=== PATIENT | male | born 1950 | race Caucasian/White ===

== ENCOUNTER 2016-10-19 08:25 | Inpatient (IN) | payer MEDICARE ==
[2016-10-19] VITALS (12 sets, daily range): BP systolic 105–139; BP diastolic 25–83; PULSE 60–119; RESP 14–22; O2SAT 93–100
[~2016-10-19] VITALS: Ht 172.7 cm; Wt 102.6 kg
[~2016-10-19 08:25] MED LIST: ACET-1890 PO; ALBU8.5H4 IH; ATRINH INH; AZTH50T PO; LOSA100T29 PO; LOVA40TA PO; MOME13HF IH; OMEP-113 PO; OXYC5CAP4 PO; SERT25TA2 PO; SULF1TAB35 PO; ZOLP5TAB6 PO
--- NOTE | 2016-10-19 08:35 | ED.REPORT ---
HPI-General Illness Date of Service October 19, 2016 ED Provider: Alberto Arguelles MD History of Present Illness: The patient received a phone call to come to the emergency department as his labs drawn yesterday in the clinic where he was seen for fatigue revealed a critically low hemoglobin of 5 Patient is a 66 year old male with a history of Crohn's disease, stomach ulcers and COPD who presents to the ED complaining of intermittent fatigue onset months ago. Associated symptoms include shortness of breath that is exacerbated by movement, ankle swelling and rectal discharge with blood. He denies chest pain, nausea, vomiting, diarrhea or abdominal pain. The patient reports that the fatigue has effected his ability to work on his wood work. He also states that the shortness of breath started over a year ago and has been worse the past few months. He reports that a year ago he was able to walk half a mile without getting shortness of breath but now even walking into a room causes him to get short of breath. Patient states that after infusions his fistula will stop draining and he will begin to have rectal discharge with blood. His last episode of bloody rectal discharge was yesterday and has been increasing over the past months. The patient was seen yesterday for a routine check up, where his doctor told him he looked pale. He received a phone call from his doctor this morning who told him he was very anemic and recommended he come to the ED. Patient is not currently taking ASA. Nursing Notes Stated Complaint: FATIGUE Chief Complaint: General Complaint Nursing Notes Reviewed: Yes Allergies: Coded Allergies: Penicillins (Verified Allergy, Unknown, UNKNOWN, 12/22/14) aspirin (Verified Allergy, Unknown, R/T CROHNS, 12/22/14) lisinopril (Verified Adverse Reaction, Severe, cough, 12/22/14) Scheduled Azathioprine (Azathioprine) 50 Mg Tablet 100 MG PO BID Gabapentin (Gabapentin) 300 Mg Capsule 300 MG PO BID Multivit-Min/FA/Lycopen/Lutein (Centrum Silver Men Tablet) 300 Mcg-600 Mcg-300 Mcg Tablet 1 EACH PO DAILY Tamsulosin (Flomax) 0.4 Mg Capsule 0.4 MG PO DAILY Scheduled PRN Omeprazole (Omeprazole) 20 Mg Capsule.dr 20 MG PO DAILY PRN PRN For Dyspepsia or Heartburn Oxycodone HCl/Acetaminophen 5-325 (Endocet 5-325) 1 Each Tablet 1 TABLET PO BID PRN PRN pa Zolpidem (Zolpidem) 5 Mg Tablet 5 MG PO HS PRN PRN For Insomnia General Time Seen by MD: 08:33 Chief Complaint Not feeling well, Other "I feel tired" is his main complaint, he is here because he was sent today having received a phone call that his outpatient labs drawn yesterday were abnormal Past Medical History Past Medical History Crohn's disease s/p subtotal colectomy 2009. 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 HTN Kidney stones Past Surgical History S/p Subtotal colectomy 2009. Percutaneous drainage of abdomen/pelvic abscess by Interventional Radiologist in September 2013. S/P tonsillectomy. S/p Left hemiarthroplasty. Smoking History Current Every Day Smoker, Light Tobacco Smoker Social History Alcohol Use: Denies alcohol use Ambulatory Status Independent Physical Exam Vital Signs Vital Signs Date Time Temp Pulse Resp B/P Pulse Ox O2 Delivery O2 Flow Rate FiO2 10/19/16 08:30 35.7 85 14 139/67 99 Room Air Initial VS: Reviewed General/Constitutional: Awake, Alert, No acute distress Appearance / Presentation: Positive: Ill appearing/not toxic, Pale Head / Eyes: Atraumatic, Normocephalic, PERRL, EOMI Neck: Atraumatic, Supple, Full range of motion Respiratory / Chest: Atraumatic, Breath sounds NL, Breath sounds = bilat, No respiratory distress Cardiovascular: Heart rate NL, Regular rhythm, Heart sounds NL Abdomen: Atraumatic, Soft, Non-tender fistula pouch on RLQ Lower Extremity / Pelvis / MS: Atraumatic, Full range of motion +1-2 edema both extremities Skin: Atraumatic, Color NL, No rash, Warm, Dry Neurologic: Oriented X3, Speech NL, No motor deficits, No sensory deficits Psychiatric: Affect NL, Mood NL Interpretation & Diagnostics Lab Results Interpretation Result Diagram: 10/19/16 1015 10/19/16 0845 Test 10/19/16 08:45 10/19/16 10:15 White Blood Count 3.1th/mm3 (3.8-10.1) Red Blood Count 1.10mil/mm3 (4.40-5.80) Mean Corpuscular Volume 124.5fL (81-100) Mean Corpuscular Hemoglobin 43.6pg (27.0-35.0) Mean Corpuscular Hemoglobin Concent 35.0% (32.0-37.0) Red Cell Distribution Width 17.7% (12.3-15.4) Platelet Count 128bil/L (150-400) Neutrophils (%) (Auto) 34.6% (40-74) Lymphocytes (%) (Auto) 51.0% (14-46) Monocytes (%) (Auto) 10.6% (4-12) Eosinophils (%) (Auto) 2.9% (0-5) Basophils (%) (Auto) 0.6% (0-3) Reticulocyte Count,Calculated 1.1% (0.6-2.6) Prothrombin Time 10.2sec (8.1-12.5) Prothromb Time International Ratio 0.95ratio Sodium Level 138mEq/L (134-144) Potassium Level 3.2mEq/L (3.5-5.2) Chloride Level 97mEq/L (97-108) Carbon Dioxide Level 24mmol/L (18-29) Blood Urea Nitrogen 17mg/dL (8-27) Creatinine 0.99mg/dL (0.76-1.27) Estimat Glomerular Filtration Rate 80mL/min (>59) Glucose Level 117mg/dL (60-99) Calcium Level 9.0mg/dL (8.5-10.1) Total Bilirubin 0.6mg/dL (0.0-1.2) Aspartate Amino Transf (AST/SGOT) 17U/L (0-50) Alanine Aminotransferase (ALT/SGPT) 7U/L (0-44) Alkaline Phosphatase 92U/L (25-160) Troponin T 0.015ug/L (0.0-0.011) Total Protein 7.3g/dL (6.4-8.4) Albumin 3.3g/dL (3.4-5.0) Hemoglobin 4.1g/dL (13.8-17.2) Hematocrit 11.9% (41.0-50.0) Lab Results Interpretation: CBC mild nonspecific leukopenia, severe anemia, mostly normal platelets Repeat hematocrit small drop still severely low CMP mild hypokalemia Normal reticulocyte count ECG Interpretation ECG Interpretation: no findings of ischemia better quality than previous EKG Time: 08:53 Interpreted by: ED physician Normal ECG Interpretation: Normal rate (67), Normal sinus rhythm X-Ray Chest Interpretation Chest Xray Interpretation: IMPRESSION: No acute cardiopulmonary findings. Dictated by: Kaitlin Thomas M.D. on 10/19/2016 at 9:03 Approved by: Kaitlin Thomas M.D. on 10/19/2016 at 9:04 View: Portable, 1 view Interpretation / Wet Read by: Interpret - Radiologist Re-Eval/Medical Decision Med Decision/Clinical Course This is a 66-year-old male was referred in following results of abnormal laboratories were drawn during a routine primary care physician follow-up yesterday. The patient is a long history of Crohn's, and he has noted some increasing bloody rectal discharge which she has had long-term, as he has chronic Crohn's, a fistula in his artery had a colectomy and has an ileostomy- again he describes bloody rectal discharge, not blood in the ileostomy site. I results of the slow progression of increasing weakness and fatigue, limiting his ability to exert himself and even to do his fun workup woodworking. He saw some shortness of breath particularly with exertion, and occasional episodes of trace chest discomfort. Yesterday in the clinic he was noted to be severely pale, labs are drawn and returned today demonstrating severe, new anemia. He has required blood transfusions in the past-but has been 5-6 years since his last transfusion. He reports he feels okay, no shock to get the phone call to call telling him to come directly to the ED. He is hemodynamically normal. He has marked pallor, but does not appear acutely toxic or ill. His abdomen is soft and nontender, he has trace edema in the legs. He does not appear dyspneic. His lab work here confirms a severe anemia, and a transfusion is being started. His presentation remains highly suspicious for GI loss and situation, but the overall clinical presentation is slightly atypical-and is certainly more to be a chronic bleed rather than an acute change. No acute ischemic changes or overt heart failure evident radiographically or on EKG, but a troponin is marginally elevated-and I suspect demand ischemia as the likely etiology. This initial plan is a transfusion resuscitation, I discussed the case with the painter ski edge who was requested but had red cell scan be ordered the patient go ahead and be started on a Protonix drip as well. Suspicious been discussed with the hospitalist and the patient's being admitted while his transfusion is ongoing. Source of Hx: Old records Consultation #1: Consulted With: On-call physician (GI specialist) Call Returned at: 09:39 Permit Review Assistant: Will see patient, Agrees with eval, Agrees with plan Note: Consult with Dr. Nuñez, GI specialist and discussed patient's case. Consultation #2: Referral / Consult Name: Lonnie Dumont MD Consulted With: Hospitalist Call Returned at: 10:25 Permit Review Assistant: Agrees with eval, Agrees with plan, Accepts admit Counseled Regarding: Diagnosis, Lab results, Need for admission Discharge & Departure Primary Impression: Symptomatic anemia Additional Impressions: GI bleed GI bleed type/associated pathology: unspecified gastrointestinal hemorrhage type Qualified Code: K92.2 - Gastrointestinal hemorrhage, unspecified Elevated troponin Disposition: ADMITTED TO HOSPITAL Discharge Condition All VS Reviewed: Yes Condition: Stable Referrals: Dino David DO (PCP) Crit Care Except Billable Proc Time Spent: 30-74 minutes Services Performed: Patient management by me, Time spent at bedside, Reviewing test results, Reviewing imaging, Discussing patient care, Documentation in record, Other Scribe Attestation Portions of this note were transcribed by Ct Lewis. I, Dr. Arguelles personally performed the history, physical exam and medical decision-making; I reviewed and confirmed the accuracy of the information in the transcribed note. Signed by: Sonia Baumann, 10/19/16 and 0935. copies to: Dino David Matthew F MD October 19, 2016 08:35 Ramila Lewis October 19, 2016 08:59
--- NOTE | 2016-10-19 09:05 | DRSVH ---
PROCEDURE: X-RAY CHEST ONE VIEW, PORTABLE ([id number]) INDICATIONS: CP TECHNIQUE: One view of the chest was acquired. COMPARISON: None. FINDINGS: Surgical changes and devices: Left humeral fixation hardware is partially visualized. Lungs and pleura: No pleural effusions or pneumothorax. Lungs are clear. Mediastinum: Mediastinal contours appear normal. Heart size is normal. Bones and chest wall: No suspicious bony lesions. Overlying soft tissues appear unremarkable. IMPRESSION: No acute cardiopulmonary findings. Dictated by: Kaitlin Thomas M.D. on 10/19/2016 at 9:03 Approved by: Kaitlin Thomas M.D. on 10/19/2016 at 9:04
[2016-10-19 09:09] LABS: BASOPHILS % (AUTO) 0.6 % (0-3); EOSINOPHILS % (AUTO) 2.9 % (0-5); MONOCYTES % (AUTO) 10.6 % (4-12); Mean Corpuscular Hemoglobin 43.6 pg (27.0-35.0); Mean Corpuscular Volume 124.5 fL (81-100); NEUTROPHILS % (AUTO) 34.6 % (40-74); Platelet Count 128 bil/L (150-400)
[2016-10-19 09:14] LABS: INR 0.95 ratio
[2016-10-19] MEDS ORDERED: 0.9% Sodium Chloride 250 ML IV ONE (09:30)
[2016-10-19 09:43] LABS: TROPONIN T 0.015 ug/L (0.0-0.011)
[2016-10-19] MEDS ORDERED: AZTH50T PO (09:58)
[2016-10-19] MEDS ORDERED: TAMS0.4C98 PO (09:58)
[2016-10-19] MEDS ORDERED: OXYC-407 PO (09:58)
[2016-10-19] MEDS ORDERED: OMEP20CA11 PO (09:59)
[2016-10-19] MEDS ORDERED: MULT-1104 PO (09:59)
[2016-10-19] MEDS ORDERED: GABA-502 PO (10:01)
[2016-10-19] MEDS ORDERED: Pantoprazole 4 mg/mL 10 mL Inj IVPUSH ONE (11:15)
[2016-10-19] MEDS ORDERED: Pantoprazole Inj 80 MG, Pharmacy To Mix 1 EA in 0.9% Sodium Chloride 80 ML IV ONE ×2 (11:15)
[2016-10-19] MEDS ORDERED: Polyethylene Glycol (PEG) 17 Gm Powder PO PRN (11:25)
[2016-10-19] MEDS ORDERED: Alum-Mag Hydrox-Simeth 30 mL Suspension PO PRN (11:25)
[2016-10-19] MEDS ORDERED: Ondansetron 2 mg/mL 2 mL Inj IVPUSH PRN (11:25)
[2016-10-19 12:43] LABS: Unsaturated Iron Binding 54.9 ug/dL
[2016-10-19] MEDS ORDERED: Albuterol 2.5 mg/3 mL Inhalation Solution NEB PRN (13:40)
--- NOTE | 2016-10-19 13:41 | CONS ---
[address] [address] CONSULTATION REPORT PATIENT: RHONA CORRALES : 1950 MR#: [id number] ADMIT: 10/19/2016 JOB ID: [id number] DATE OF SERVICE: 10/19/2016 REASON FOR CONSULTATION: It was a pleasure seeing this patient at [facility] for evaluation of anemia and Crohn disease. HISTORY OF PRESENT ILLNESS: This is a 66-year-old gentleman who has been following Dr. Bee for his Crohn disease. Last time the patient was seen by Dr. Bee was in May 2016. At that time, he was on Remicade 100 mg every six weeks and he was also on azathioprine 225 mg daily. He has a history of Crohn disease for the past 21 years. He also had complicated Crohn disease with fistula with subacute colectomy with ileostomy. He has this baseline history of occasional tinge of blood in the stool and when he has Remicade, he sometimes has a little bit of ounce of mucous material with some pink coloration coming out of his rectal stump. Back in May when Dr. Bee saw the patient, he continued the Remicade 100 mg every six weeks and increase the Imuran to 225 mg. He was asked to come back in six weeks; however at that time, he was concerned about slowly decreasing of his hemoglobin and he said he may consider repeating the endoscopy in the future date. Prior to that visit, he was started on Imuran sometime around December of last year. The exact date is unclear and patient is not sure. When Imuran was started in December, his hemoglobin was 14-16, white count from 9000-10,000, platelets were in the high 200,000s. Then in January of last year, his hemoglobin was 13, platelets are 260,00. Then in February of last year, we noticed that he his hemoglobin dropped to 12.3, platelets are 289,000, and white count also slowly decreased to 7800. Then in April 2016, his white count was 3600, hemoglobin was 9.7, platelets were slowly decreasing to 207,000. Then he was feeling tired and weak, lack of energy, sometimes dizzy, so he saw his primary care doctor yesterday and they obtained blood tests. Unfortunately we do not have a blood test from July in our records which he should have gotten because that would have been three months after the initial blood test. But his white count was 3400, hemoglobin 5.2, platelets were 132,000, MCV was 123. In the past, his MCV varies from 92-95. MCH is 42.6, RDW is 20. His liver function tests however remained stable but on the other hand, his albumin also started going down from 4 to 3.5 to 3.8, 3.5 and 3.4. Transaminases are all intact. Currently other than dizziness and lightheadedness, he denies any other Crohn's symptom exacerbation such as nausea, vomiting, fever, chills, weight loss, decrease in p.o. intake, abdominal pain, diarrhea, significant blood in the stools. Occasionally he sees a tinge of blood in his ostomy and again a couple of weeks before he gets the Remicade, he has what looks like mucus material coming out with little pinkish coloration. This has been the baseline for a number of years. His appetite is intact. His ostomy output has not changed during this time, and his ostomy output is consistent with brown to yellow stools formed soft and brown. PAST MEDICAL HISTORY: Crohn's, status post total colectomy back in 2009 complicated by pelvic abscess in September 2013 with fistula, high blood pressure, kidney stones, tonsillectomy, left hemiarthroplasty. He does use tobacco. Denies any alcohol use. MEDICATIONS: Includes in hsopital nicotine, MiraLAX, Zofran, pantoprazole. PHYSICAL EXAMINATION: His vitals include temp of 36.5, pulse 64, respiration 18, blood pressure 138/70. Head and neck: No icterus. No lymphadenopathy. Lungs: Clear. Cardiovascular: Regular rate and rhythm. Normal S1, S2. Abdomen is soft, nontender, and nondistended with normoactive bowel sounds. Ostomy output seems to have no blood and soft fecal material. Mild swelling in the lower extremities noted but no jaundice on the skin. LABORATORY DATA: His blood count this morning was white count of 3100, hemoglobin of 4.8, MCV 124, MCH 43.6, RDW 17.7, platelets 128,000, 34% neutrophils, lymphocytes of 51,000. INR is 0.09. Chemistry showed potassium of 3.2, BUN 17, creatinine 0.99. Troponin is mildly elevated at 0.015, albumin 3.3. IMPRESSION: This is a gentleman who has slowly declining hemoglobin level as well as the white count as well as platelets since starting of the Imuran. His hemoglobin went from 13, 12.3, and 9.7 in April; nothing in July, and 4.8. His platelets also slowly decreased and his MCV also increased from 92 to 95 to 98 to 128. At the same time in May when he was seen by Dr. Bee, Imuran was slightly increased in dosage. He was also on high dose Remicade. Currently there is minimal evidence of GI bleeding. He does see a little bit of blood in the stool and pinkish discoloration on the ostomy output at the end of 6 weeks prior to remicade infusion; however these has been going on for a while. This appears to be slow drop in hemoglobin level, white count and platelet level as well, and retic count is only 1.1. This appears to be a bone-marrow suppression maybe from side effect from the Imuran. he was on remicade prior to December of last year and there was no evidence of pancytopenia. Recommend the followin. Hematology consult. 2. Would hold off on Imuran for now. He is not due to remicade for now. 3. Please obtain TPMT level. 4. Please also obtain 6-mercaptopurine level (6-MMP) and 6-thioguanine level (6-TG). 5. I would just keep him resuscitated at this point. With all the change and RBC profile including the elevated MCV, RDW, MCH, this is pointing to the fact that this could be Imuran induced. Will follow. In the meantime, I would just put the patient on Protonix 40 mg IV bolus once a day and after Hematology evaluation and after metabolite level, will consider whether or not future benefit from endoscopy. MTDD
--- NOTE | 2016-10-19 13:44 | PCM.HPMED ---
Subjective Date of Service October 19, 2016 Primary Provider: Admitting Physician: Lonnie Dumont MD Primary Care Physician: Dino David DO Attending Physician: Lonnie Dumont MD Chief Complaint: Anemia History of Present Illness: Mark Gallagher is a 66-year-old man with past medical history significant for Crohn's disease status post colectomy on chronic Remicade, being followed by Dr. Bee, who presents to the [facility] emergency department today by referral of his primary care provider due to abnormally low hemoglobin and hematocrit. The patient was being seen for a regular scheduled appointment with his PCP patient appeared quite pale subsequent ordered a CBC which showed that the patient's hemoglobin was around 5. The patient himself states that he has been feeling fine; he is dizzy and weak at baseline and has not noticed any difference. Patient does admit to several episodes of syncope over the last several months however, the patient attributes this to a poor diet and states that once increased his protein he felt much better. The patient chronically has some bloody discharge from his rectal stump but he has not noticed any increase in amount. Patient states that it is 1-2 ounces of bloody discharge which he says after his Remicade infusions. The patient states that his last blood transfusion was about 6 years ago which was done on outpatient basis. Patient also notes 1-2 months of new onset of lower extremity edema. He is also complaining of exertional chest pain that is relieved by rest and last about 3-5 minutes has been going on for several months. Of note, the patient's daughter is also transfusion dependent apparently however, patient is uncertain of any further details. He will contact his daughter for further information. In the ED his vital signs were stable. Dr. Morel GI was consulted who agreed to see the patient At his request the patient was started on a Protonix drip. The patient was typed and crossed for 4 units of PRBCs and was transfused with his first bag. Review of Systems: A comprehensive review of systems was conducted with the patient and found to be negative except as above in the History of Present Illness. Allergies Coded Allergies: Penicillins (Verified Allergy, Unknown, UNKNOWN, 12/22/14) aspirin (Verified Allergy, Unknown, R/T CROHNS, 12/22/14) lisinopril (Verified Adverse Reaction, Severe, cough, 12/22/14) Home Medications Scheduled Azathioprine (Azathioprine) 50 Mg Tablet 100 MG PO BID Gabapentin (Gabapentin) 300 Mg Capsule 300 MG PO BID Multivit-Min/FA/Lycopen/Lutein (Centrum Silver Men Tablet) 300 Mcg-600 Mcg-300 Mcg Tablet 1 EACH PO DAILY Tamsulosin (Flomax) 0.4 Mg Capsule 0.4 MG PO DAILY Scheduled PRN Omeprazole (Omeprazole) 20 Mg Capsule.dr 20 MG PO DAILY PRN PRN For Dyspepsia or Heartburn Oxycodone HCl/Acetaminophen 5-325 (Endocet 5-325) 1 Each Tablet 1 TABLET PO BID PRN PRN pa Zolpidem (Zolpidem) 5 Mg Tablet 5 MG PO HS PRN PRN For Insomnia PMH Crohn's disease s/p subtotal colectomy 2009. 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 HTN Kidney stones Surgical History S/p subtotal colectomy 2009. Percutaneous drainage of abdomen/pelvic abscess by Interventional Radiologist in September 2013. S/P tonsillectomy. S/p Left hemiarthroplasty Appendectomy Family History Daughter is also anemic. 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 Denied needs for nicotine patch.) Smoking Status: Current Every Day Smoker, Light Tobacco Smoker Exam Vital Signs Vital Sign - Last Date Time Temp Pulse Resp B/P Pulse Ox O2 Delivery O2 Flow Rate FiO2 10/19/16 11:48 66 10/19/16 11:34 Supplement Oxygen 10/19/16 11:27 36.5 18 138/70 96 10/19/16 10:39 2 Exam General: Pale, No acute distress, well-developed, well-nourished, appropriately interactive HEENT: Normocephalic, atraumatic. External ears without defect. Pupils equal, round, and reactive to light and accommodation. Anicteric sclerae, moist conjunctivae, and no lid lag. Oropharynx free of erythema and cobble stoning with moist mucosa. Pale conjunctiva. Neck: Supple with full range of motion. No jugular venous distension. No bruits. No lymphadenopathy or thyromegaly. Cardiovascular: Regular rate and rhythm with no murmurs, rubs, or gallops appreciated Pulmonary: Crackles at the bilateral apexes otherwise clear to auscultation. Normal respiratory effort with no use of accessory muscles. Abdomen: Bowel tones present. Soft, nontender, nondistended. No hepatosplenomegaly or masses appreciated. Colostomy present with a nearly empty. Subumbilical fistula present with dressing over it. Extremities: No clubbing, cyanosis, or lymphadenopathy appreciated. Bilateral pitting lower extremity edema up to mid lower leg. Skin: Normal temperature, turgor, and texture; no rash, ulcers, or subcutaneous nodules appreciated. Neurological: Cranial nerves grossly intact. Normal muscle strength, tone, and bulk. Reflexes, coordination, and sensory function within normal limits. No known gait impairment. Psychiatric: Normal mood and affect. Alert and oriented to person, place, and time. Lab and Diagnostics Result Diagram: 10/19/16 1015 10/19/16 0845 X-Rays, CTs and MRIs X-RAY CHEST ONE VIEW, PORTABLE IMPRESSION: No acute cardiopulmonary findings. Dictated by: Kaitlin Thomas M.D. on 10/19/2016 at 9:03 Assessment & Plan Mark Gallagher is a 66-year-old man with past medical history significant for Crohn's disease status post colectomy on chronic Remicade, being followed by Dr. Bee, who presents to the [facility] emergency department today by referral of his primary care provider due to abnormally low hemoglobin and hematocrit. Severe symptomatic macrocytic anemia, likely acute on chronic, present on admission -Based on the patient's compensation he has been anemic for an extended period of time -His MCV is significantly elevated at 124, RDW is also elevated at 17 which may be suggestive of concomitant iron deficiency and B12/folate deficiency -Differential diagnosis includes GI bleed, hemolytic anemia, bone marrow suppression, B12 deficiency secondary to bacterial overgrowth secondary to fistula, iron deficiency secondary to slow GI bleed, or suppression secondary to Remicade, Imuran bone marrow toxicity -B12, folate, iron panel, cold agglutinin, peripheral smear have been ordered and pending. -Unfortunately the patient regarding transfusion PRBCs and many of our studies cannot be completed, doing them on post transfusion blood would give false results -Patient typed and crossed for 4 units PRBCs, transfusing 3 units -H&H every 6 hours -GI consulted, agrees to see the patient. Will likely do EGD after patient is transfused. Per recommendation she was started on PPI ip, will continue. -Per GI recommendation radioactive labeled RBCs study has been ordered -GI recommend hematology consult however, will await studies to gather more information before contacting hematology. 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 Patient states that this is normal for him and requires packing, sometimes multiple times per day. Therefore, we will continue to pack wound and do dressing changes as needed. -Hold Imuran Chronic smoker -Patient is ever been diagnosed with COPD however, he does make to a chronic cough that is mildly productive with clear sputum -He has also had a pulmonary function study in 2014 which revealed air trapping however no air-fluid obstruction and curiously significant bronchodilator response which may be more consistent with asthma thus, will offer patient PRN albuterol. -Nicotine patch offered BPH -Continue Flomax Insomnia - Continue PRN zolpidem. CODE STATUS: Full code Patient is admitted under inpatient status with expected length of stay greater than 2 midnights due to severity of presenting symptoms, risk of adverse event, and complexity of treatment plan. Pain Evaluation: Adequate Pain Control GI Prophylaxis: Proton Pump Inhibitor VTE Mechanical Devices: Intermittant Pneumatic CD Resuscitation Status: CPR: Attempt Resuscitation Attending Statement Patient seen and examined with the resident. Chart has been reviewed and agree with the above history and physical note. Rosalina Acuna DO October 19, 2016 11:57 Lonnie Dumont MD October 19, 2016 19:05
[2016-10-19 15:33] LABS: APPEARANCE,URINE CLEAR (CLEAR,HAZY); COLOR,URINE YELLOW (YELLOW); OCCULT BLOOD,URINE NEGATIVE (NEGATIVE); PH,URINE 5.5 (5.0-8.0); UROBILINOGEN,URINE NORMAL (NORMAL)
[2016-10-19] MEDS ORDERED: Potassium Chloride 20 mEq SR Tablet PO ONE (18:10)
[2016-10-19] MEDS: oxyCODONE-Acetamin 5-325 mg Tablet PO PRN (21:59)
[2016-10-20] VITALS (16 sets, daily range): BP systolic 99–155; BP diastolic 45–72; PULSE 60–80; RESP 14–20; O2SAT 94–99
[2016-10-20 02:56] LABS: BASOPHILS % (AUTO) 0.4 % (0-3); EOSINOPHILS % (AUTO) 3.1 % (0-5); MONOCYTES % (AUTO) 8.6 % (4-12); Mean Corpuscular Hemoglobin 36.2 pg (27.0-35.0); Mean Corpuscular Volume 105.9 fL (81-100); NEUTROPHILS % (AUTO) 38.1 % (40-74); Platelet Count 114 bil/L (150-400)
[2016-10-20] MEDS: Pantoprazole 4 mg/mL 10 mL Inj IVPUSH SCH ×2 (08:20→17:31)
[2016-10-20] MEDS: 0.9% Sodium Chloride 250 ML IV SCH (08:22)
--- NOTE | 2016-10-20 11:20 | PCM.PNMED ---
Subjective Date of Service October 20, 2016 Subjective Patient states is doing well overnight. He is asymptomatic even though his hemoglobin continues to drop. He denies associated review of symptoms. His history very well compensated for his lack hemoglobin. Exam Vital Signs Vital Sign - Last Date Time Temp Pulse Resp B/P Pulse Ox O2 Delivery O2 Flow Rate FiO2 10/20/16 10:31 37.0 62 14 121/65 10/20/16 03:13 96 Room Air 10/19/16 22:55 Intake and Output 10/19/16 10/19/16 10/20/16 Cumulative From/Thru 15:00 23:00 07:00 10/19/16 08:30 - 10/20/16 06:59 Intake Total 352 ml 921 ml 300 ml 1573 ml Output Total 550 ml 825 ml 1375 ml Balance 352 ml 371 ml -525 ml 198 ml Intake Oral 50 ml 300 ml 350 ml IV Total 352 ml 515 ml 867 ml Packed Cells 356 ml 356 ml Output Urine Total 550 ml 350 ml 900 ml Stool Total 475 ml 475 ml Exam Gen.: Patient awake and alert in no acute distress Cardio: Regular rate and rhythm Respiratory: CTA bilaterally Abdomen: Nontender, nondistended, obese, soft Extremities: Pitting edema of the lower extremities up to the mid tibia Skin: No rashes or petechiae Neuro: Grossly intact Psychiatric: Appropriate mood and affect IVs and Medications Medications Reviewed: Medications were reviewed in detail Lab and Diagnostics Result Diagram: 10/20/1622210/20/16222 X-Rays, CTs and MRIs X-RAY CHEST ONE VIEW, PORTABLE IMPRESSION: No acute cardiopulmonary findings. Dictated by: Kaitlin Thomas M.D. on 10/19/2016 at 9:03 Assessment & Plan Assessment and plan: 66-year-old male with Crohn's disease who was started on Imuran last January and Remicade for many years. He has continuing pancytopenia likely second to Imuran use. As stated in yesterday's note recommended discontinuing the imuran at this time. Patient also has a macrocytic anemia and we await the results of the blood tests ordered by the primary team. This time liver function looks good does not appear to be the cause of his low platelets or blood counts. We await the results of the TPM T, 6 M MP, and 6 TG levels. Also recommend that she have a additional H&H this afternoon as well as additional transfusions. To be safe place patient on protonic 40 mg IV daily. Patient denies ongoing rectal bleeding or hematemesis will hold off on any endoscopy for the foreseeable future. I have seen and examined the patient with the resident and agree with above. Pt on admission had hgb 4.1 and after 5 units of blood hgb 8.6; Ideally expect 9.1 hgb. This appears to be relatively appropriate response especially getting IV fluids as well. He has no blood in stool or melena. He had some blood from fistula but he gets intermittent bleeding from the fistula for years. We will follow his Hgb level. During this hospitalization, he was not tachycardic or lost BP. GI Prophylaxis: Proton Pump Inhibitor VTE Mechanical Devices: Intermittant Pneumatic CD Resuscitation Status: CPR: Attempt Resuscitation Ruben Elias DO October 20, 2016 11:20 Elliott Nuñez MD October 20, 2016 14:25
[2016-10-20 12:30] LABS: BASOPHILS % (AUTO) 1.1 % (0-3); EOSINOPHILS % (AUTO) 2.5 % (0-5); MONOCYTES % (AUTO) 10.5 % (4-12); Mean Corpuscular Hemoglobin 35.1 pg (27.0-35.0); Mean Corpuscular Volume 98.8 fL (81-100); NEUTROPHILS % (AUTO) 42.7 % (40-74); Platelet Count 130 bil/L (150-400)
[2016-10-20] MEDS: oxyCODONE-Acetamin 5-325 mg Tablet PO PRN ×2 (19:50→21:33)
--- NOTE | 2016-10-20 23:38 | PCM.PNMED ---
Subjective Date of Service October 20, 2016 Subjective Patient is feeling better than he has in months. He is much less fatigued. He has less edema. And he is very happy with how he was feeling. He has no new complaints. Exam Vital Signs Vital Sign - Last Date Time Temp Pulse Resp B/P Pulse Ox O2 Delivery O2 Flow Rate FiO2 10/20/16 21:29 36.5 70 20 139/68 97 Room Air 10/19/16 22:55 Intake and Output 10/19/16 10/19/16 10/20/16 Cumulative From/Thru 15:00 23:00 07:00 10/19/16 08:30 - 10/20/16 06:59 Intake Total 352 ml 921 ml 300 ml 1573 ml Output Total 550 ml 825 ml 1375 ml Balance 352 ml 371 ml -525 ml 198 ml Intake Oral 50 ml 300 ml 350 ml IV Total 352 ml 515 ml 867 ml Packed Cells 356 ml 356 ml Output Urine Total 550 ml 350 ml 900 ml Stool Total 475 ml 475 ml Exam General: The patient is in good spirits and able to sit on the side of the bed. He is in no apparent distress HEENT: Head is atraumatic and normocephalic. Eyes: Pupils are equally round and reactive to light and accommodation. Extraocular muscles are intact. Sclera are white, anicteric. Subconjunctival mucosa is pink. Ears and nose are unremarkable. Oropharynx: There is no mucosal lesions, there is no thrush, there is no pharyngitis. Neck: Is supple, there are no nodes, or masses or tenderness. Chest: Is clearer to auscultation and percussion. There are no new rales, rhonchi, wheezes or rubs. Heart: Rate, rhythm is regular. There is no new murmur, rub or gallop. Abdomen: Good bowel sounds are present. Abdomen is obese, soft, nontender, no organomegaly or masses were appreciated. Extremities: Are symmetrical and well perfused. There is decreased edema bilaterally, there is no cellulitis, no rash. Neurologic: There are no focal neurological deficits. Cranial nerves II through XII are intact. There are no sensory or motor deficits. Patient appears more energetic Psychiatric: Patients mood is calm and shows no sign of agitation. The patient is in good spirits. Genital: Deferred Rectal: Deferred Lab and Diagnostics Result Diagram: 10/20/16 1215 10/20/16 0223 X-Rays, CTs and MRIs X-RAY CHEST ONE VIEW, PORTABLE IMPRESSION: No acute cardiopulmonary findings. Dictated by: Kaitlin Thomas M.D. on 10/19/2016 at 9:03 Assessment & Plan Mark Gallagher is a 66-year-old man with past medical history significant for Crohn's disease status post colectomy on chronic Remicade, being followed by Dr. Bee, who presents to the [facility] emergency department today by referral of his primary care provider due to abnormally low hemoglobin and hematocrit. Severe symptomatic macrocytic anemia, likely acute on chronic, present on admission -Based on the patient's compensation he has been anemic for an extended period of time -His MCV is significantly elevated at 124, RDW is also elevated at 17 which may be suggestive of concomitant iron deficiency and B12/folate deficiency -Differential diagnosis includes GI bleed, hemolytic anemia, bone marrow suppression, B12 deficiency secondary to bacterial overgrowth secondary to fistula, or suppression secondary to Remicade, Imuran bone marrow toxicity -B12, folate, cold agglutinin, peripheral smear have been ordered and pending. -Unfortunately the patient regarding transfusion PRBCs and many of our studies cannot be completed, doing them on post transfusion blood would give false results -Patient typed and crossed for 4 units PRBCs, transfusing 3 units -H&H every 6 hours -GI consulted and their time and expertise is appreciated. We will follow their recommendations. -Per GI recommendation radioactive labeled RBCs study has been ordered -GI recommend hematology consult however, will await studies to gather more information before contacting hematology. -Patient to inquire about his daughter's anemia to see if there is any familial component Pancytopenia -Patient has mildly decreased WBC count, notably decreased hemoglobin, mildly low platelet count as well and this may be due to Imuran toxicity. 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 Patient states that this is normal for him and requires packing, sometimes multiple times per day. Therefore, we will continue to pack wound and do dressing changes as needed. -Hold Imuran Chronic smoker -Patient is ever been diagnosed with COPD however, he does have a chronic cough that is mildly productive with clear sputum -He has also had a pulmonary function study in 2015 which revealed air trapping however no air-fluid obstruction and curiously significant bronchodilator response which may be more consistent with asthma thus, will offer patient PRN albuterol. -Nicotine patch offered BPH -Continue Flomax Insomnia - Continue PRN zolpidem. CODE STATUS: Full code Pain Evaluation: Adequate Pain Control GI Prophylaxis: Proton Pump Inhibitor VTE Mechanical Devices: Intermittant Pneumatic CD Resuscitation Status: CPR: Attempt Resuscitation Lonnie Dumont MD October 20, 2016 23:38
[2016-10-21 03:30] LABS: BASOPHILS % (AUTO) 0.3 % (0-3); EOSINOPHILS % (AUTO) 9.4 % (0-5); MONOCYTES % (AUTO) 8.8 % (4-12); Mean Corpuscular Hemoglobin 35.2 pg (27.0-35.0); Mean Corpuscular Volume 100.4 fL (81-100); NEUTROPHILS % (AUTO) 41.1 % (40-74); Platelet Count 118 bil/L (150-400)
[2016-10-21] MEDS: 0.9% Sodium Chloride 250 ML IV SCH (03:35)
[2016-10-21 03:59] LABS: Magnesium 1.6 mg/dL (1.6-2.6); Phosphorus 3.9 mg/dL (2.5-4.9)
[2016-10-21 04:44] VITALS: BP 107/66; PULSE 73; RESP 20; O2SAT 97
[2016-10-21 07:35] VITALS: BP 128/75; PULSE 67; RESP 20; O2SAT 95
[2016-10-21] MEDS: Pantoprazole 4 mg/mL 10 mL Inj IVPUSH SCH ×2 (07:42→16:30)
[2016-10-21] MEDS ORDERED: Magnesium Sulf 4 Gm/100 mL H2O 4 GM in IV Premix 1 EACH IV ONE (08:30)
[2016-10-21 09:22] VITALS: PULSE 67
--- NOTE | 2016-10-21 10:52 | PCM.PNMED ---
Subjective Date of Service October 21, 2016 Subjective GI progress note Overnight patient did well. No current complaints including dizziness, falls, lightheadedness, syncope, or other review of systems. Lab review for today shows a mild increase in white and red blood cells. Platelets decreased but they had increased yesterday. Patient denies review of systems including hematochezia/melena. No abdominal pain. Hematology is being consult the today was as discussed with the primary team. Exam Vital Signs Vital Sign - Last Date Time Temp Pulse Resp B/P Pulse Ox O2 Delivery O2 Flow Rate FiO2 10/21/16 09:22 67 10/21/16 07:35 37.0 20 128/75 95 Room Air 10/19/16 22:55 Intake and Output 10/20/16 10/20/16 10/21/16 Cumulative From/Thru 15:00 23:00 07:00 10/19/16 08:30 - 10/21/16 06:51 Intake Total 750 ml 760 ml 400 ml 3483 ml Output Total 750 ml 600 ml 2725 ml Balance 750 ml 10 ml -200 ml 758 ml Intake Oral 760 ml 400 ml 1510 ml IV Total 100 ml 967 ml Packed Cells 650 ml 1006 ml Output Urine Total 400 ml 350 ml 1650 ml Stool Total 350 ml 250 ml 1075 ml Exam Gen.: Patient awake and alert in no acute distress Cardio: Regular rate and rhythm Respiratory: CTA bilaterally Abdomen: Nontender, nondistended, obese, soft Extremities: Pitting edema of the lower extremities up to the mid tibia Skin: No rashes or petechiae Neuro: Grossly intact Psychiatric: Appropriate mood and affect IVs and Medications Medications Reviewed: Medications were reviewed in detail Lab and Diagnostics Result Diagram: 10/21/16 0320 10/21/16 0320 X-Rays, CTs and MRIs X-RAY CHEST ONE VIEW, PORTABLE IMPRESSION: No acute cardiopulmonary findings. Dictated by: Kaitlin Thomas M.D. on 10/19/2016 at 9:03 Assessment & Plan Assessment/plan 66-year-old male with Crohn's disease on chronic Remicade and Imuran ( azathioprine) who is admitted due to pancytopenia from his primary care's office. Patient does not seem to be bleeding from his GI tract are anywhere else that we have been able to identify. Patient's CBC shows leukopenia, thrombocytopenia, and anemia. Reticulocyte count was also suppressed at 1.1 on admission and hints that this is bone marrow suppression and not an acute bleeding issue. Patient is now off the Imuran which is the likely culprit in this situation as it does have a rare but noticeable hematologic toxicity. Patient does have macrocytosis but there is no evidence of jaundice or liver dysfunction at this time, and I suppose a haptoglobin level may confirm this. This was all discussed with the primary care team and hematology consult today. We will continue to follow the patient. After discharge she should follow-up with Dr. Bee for evaluation of his Crohn's. Thank you for allowing us to participate in care of this patient. I saw and examined this patient with the resident. Agree with the above. GI Prophylaxis: Proton Pump Inhibitor VTE Mechanical Devices: Intermittant Pneumatic CD Resuscitation Status: CPR: Attempt Resuscitation Ruben Elias DO October 21, 2016 10:52 Elliott Nuñez MD October 29, 2016 20:09
--- NOTE | 2016-10-21 11:32 | DRSVH ---
[facility] [address] [place] [address] Echocardiogram Report Name: RHONA CORRALES PStudy Date : 10/21/2016 Height: 68 in Hospital Exam Location: [facility] Weight: 226 lb Gender: Male BSA: 2.2 m2 : 1950 Age: 66 yrs BP: 128/75 mmHg Reason For Study: CARDIOMYOPATHY, HX OF LV APICAL HYPOKINESIS Ordering Physician: Performed By: Jennifer Izquierdo Referring Physician: DR. Antoinette CHU Interpretation Summary The left ventricle is normal in size, wall thickness, and systolic function without any focal wall motion abnormalities. The ejection fraction is estimated to be 55-60%. Previously reported apical WMA is no longer seen The aortic valve is slightly calcified. Leaflet mobility is moderately reduced. The calculated aortic valve area is 1.2 cm2. The peak aortic velocity is 2.8 m/sec. The peak aortic velocity on the previous exam was 2.2 m/sec. The aortic root is mildly dilated. Procedure: A two-dimensional transthoracic echocardiogram with color flow and Doppler was performed. The study quality was technically adequate. The apical views were difficult to obtain and are suboptimal in quality. A contrast injection of Definity was performed to improve assessment of LV function. Contrast was injected into an intravenous site in the left arm. A total of 6 cc of contrast was given. Comparison is made with the echocardiogram of 01-26-2015. The patient was in sinus during the exam. Left Ventricle: The left ventricle is normal in size, wall thickness, and systolic function without any focal wall motion abnormalities. The LVOT diameter is 2.1 cm. The ejection fraction is estimated to be 55-60%. There are no obvious focal wall motion abnormalities noted but poor endocardial definition reduces the sensitivity for the detection of such. Previously reported apical WMA is no longer seen. Spectral Doppler of the mitral valve shows a normal E/A wave ratio. Right Ventricle: The right ventricle is normal in size and function. Atria: There is no Doppler evidence for an atrial septal defect. Mitral Valve: There is mild mitral annular calcification. The mitral valve leaflets appear normal. There is no evidence of stenosis, fluttering, or prolapse. There is no mitral regurgitation noted. Aortic Valve: The aortic valve is trileaflet. The aortic valve is slightly calcified. Leaflet mobility is moderately reduced. The calculated aortic valve area is 1.2 cm2. The peak aortic velocity is 2.8 m/sec. The aortic valve mean gradient is 16 mmHg. The peak aortic velocity on the previous exam was 2.2 m/sec. No aortic regurgitation is present. Tricuspid Valve: The tricuspid valve leaflets are thin and pliable. There is a trace or physiologic amount of tricuspid regurgitation. Pulmonary artery pressures cannot be estimated because of the lack of a measurable TR jet velocity. Pulmonic Valve: The pulmonic valve leaflets are thin and pliable; valve motion is normal. Great Vessels: The aortic root is mildly dilated. The ascending aorta is mildly enlarged. The pulmonary artery is normal size. The IVC is dilated (diameter is greater than 2.1 cm) yet it collapses greater than 50% with a sniff. This suggests a right atrial pressure of 8 mm Hg. Pericardium/ Pleura There is no pericardial effusion. There is no pleural effusion. MMode/2D Measurements & Calculations LVIDd: 6.3 cm LA dimension: 5.5 cm RA long axis LVOT diam: 2.1 cm LVIDs: 3.9 cm AoV Opening FS: 38.4 % LA A2 area: 31.4 cm RA area EPSS: 0.44 cm LA A4 area: 33.4 cm Ao root diam IVSd: 1.0 cm LA length (vol) : 27.4 cm LVPWd: 0.82 cm RA vol Aortic Jxn: 2.8 cm LA vol: 120.3 ml : 94.5 ml asc Aorta Diam LA vol index RA : 43.9 mm2 Ao Arch Diam (Prox : 55.9 ml/m2 Trans): 2.9 cm LV shook. diameter/BSA LV sys. diameter/BSA RVD2 (mid) (cm/m^2): 2.9 (cm/m^2): 1.8 : 4.0 cm Doppler Measurements & Calculations Ao V2 max MV E max carlos MV E/A: 1.5 PA V2 max : 284.0 cm/sec : 108.0 cm/sec Med Peak E' Carlos : 92.7 cm/sec Ao max PG MV A max carlos PA mean PG : 32.3 mmHg : 72.8 cm/sec E/E' med: 16.8 Ao mean PG MV P1/2t: 69.5 msec Lat Peak E' Carlos PA Accel Time : 16.3 mmHg : 0.09 sec LVOT Max Carlos E/E' lat: 13.1 : 110.7 cm/sec E/e' average: 15.0 Pulm A Revs Dur JUAN ALBERTO(I,D): 1.2 cm sev ratio MV A dur: 0.13 sec MV dec time MV P1/2t max carlos Ao V2 mean LV V1 max PG : 0.23 sec : 189.3 cm/sec MVA(P1/2t): 3.2 cm2 Ao V2 VTI: 63.0 cm LV V1 VTI JUAN ALBERTO(V,D): 1.3 cm2 : 22.6 cm PA V2 mean JUAN ALBERTO indexed to BSA Pulm A Revs Dur - MV A : 62.0 cm/sec (cm^2/m^2): 0.57 Dur: 0.01 msec Electronically signed by: Familia Pelaez on Reading Physician:10/21/2016 11:32 AM
[2016-10-21 12:27] VITALS: BP 125/70; PULSE 68; RESP 18; O2SAT 96
--- NOTE | 2016-10-21 17:03 | PCM.DIMED ---
Rosalina Acuna DO 10/21/16 1703: Discharge Instructions Date of Service October 21, 2016 Dates of Hospitalization October 19, 2016 at 10:23 Discharge Diagnosis Discharge Diagnosis Severe symptomatic macrocytic anemia, likely acute on chronic, present on admission Pancytopenia Crohn's disease status post colectomy on chronic Remicade and Imuran Chronic smoker BPH Insomnia Medication Instructions DO NOT TAKE IMURAN. Diet No restrictions Activity Limited until seen by PCP Call your provider Fever or Chills, Shortness of breath, Bleeding Patient Instructions Please follow up with your PCP in one week. Please follow up with Dr. Hay in 2 months at the [facility]. Please follow up with Dr. Bee at his next available appointment. Provider: Esdras Hay MD Follow-up in: Other (2 months) Lonnie Dumont MD 10/21/16 2248: Discharge Instructions Attending's Statement Patient seen and examined with Dr. Acuna. Chart review and agree with the above discharge instructions. Rosalina Acuna DO October 21, 2016 17:03 Lonnie Dumont MD October 21, 2016 22:48
--- NOTE | 2016-10-21 19:10 | PCM.DC.MED ---
Discharge Summary Date of Service October 21, 2016 Dates of Hospitalization Date of Hospital Admission October 19, 2016 at 10:23 Date of Discharge: October 21, 2016 Providers: Admitting Physician: Lonnie Dumont MD Primary Care Physician: Dino David DO Attending Physician: Lonnie Dumont MD Diagnosis at Time of Discharge Diagnosis at Time of Discharge Severe symptomatic macrocytic anemia, likely acute on chronic, present on admission Pancytopenia Crohn's disease status post colectomy on chronic Remicade and Imuran Chronic smoker BPH Insomnia Consultations Hematology Gastroenterology Procedures XRay, CTs & MRIs X-RAY CHEST ONE VIEW, PORTABLE IMPRESSION: No acute cardiopulmonary findings. Dictated by: Kaitlin Thomas M.D. on 10/19/2016 at 9:03 Brief History Mark Gallagher is a 66-year-old man with past medical history significant for Crohn's disease status post colectomy on chronic Remicade, being followed by Dr. Bee, who presents to the [facility] emergency department today by referral of his primary care provider due to abnormally low hemoglobin and hematocrit. The patient was being seen for a regular scheduled appointment with his PCP patient appeared quite pale subsequent ordered a CBC which showed that the patient's hemoglobin was around 5. The patient himself states that he has been feeling fine; he is dizzy and weak at baseline and has not noticed any difference. Patient does admit to several episodes of syncope over the last several months however, the patient attributes this to a poor diet and states that once increased his protein he felt much better. The patient chronically has some bloody discharge from his rectal stump but he has not noticed any increase in amount. Patient states that it is 1-2 ounces of bloody discharge which he says after his Remicade infusions. The patient states that his last blood transfusion was about 6 years ago which was done on outpatient basis. Patient also notes 1-2 months of new onset of lower extremity edema. He is also complaining of exertional chest pain that is relieved by rest and last about 3-5 minutes has been going on for several months. Of note, the patient's daughter is also transfusion dependent apparently however, patient is uncertain of any further details. He will contact his daughter for further information. In the ED his vital signs were stable. Dr. Nuñez of GI was consulted who agreed to see the patient At his request the patient was started on a Protonix drip. The patient was typed and crossed for 4 units of PRBCs and was transfused with his first bag. Patient was admitted to the hospital service for further evaluation and treatment. Hospital Course aMrk Gallagher is a 66-year-old man with past medical history significant for Crohn's disease status post colectomy on chronic Remicade, being followed by Dr. Bee, who presents to the [facility] emergency department today by referral of his primary care provider due to abnormally low hemoglobin and hematocrit. Severe symptomatic macrocytic anemia, likely acute on chronic, present on admission -Based on the patient's compensation he has been anemic for an extended period of time -His MCV is significantly elevated at 124, RDW is also elevated at 17 which may be suggestive of concomitant iron deficiency and B12/folate deficiency -B12, folate, cold agglutinin, peripheral smear have been ordered and pending. -Transfused 4 units PRBCs Pancytopenia -Patient has mildly decreased WBC count, notably decreased hemoglobin, mildly low platelet count as well and this may be due to Imuran toxicity. -Reticulocyte index is 0.05 which is highly suggestive of bone marrow suppression Crohn's disease status post colectomy on chronic Remicade and Imuran -Held Imuran Chronic smoker -Patient is ever been diagnosed with COPD however, he does have a chronic cough that is mildly productive with clear sputum -He has also had a pulmonary function study in 2014 which revealed air trapping however no air-fluid obstruction and curiously significant bronchodilator response which may be more consistent with asthma thus, -Offered patient PRN albuterol. -Nicotine patch offered BPH -Continued Flomax Insomnia - Continued PRN zolpidem. Exam Vital Signs (Last) Date Time Temp Pulse Resp B/P Pulse Ox O2 Delivery O2 Flow Rate FiO2 10/21/16 12:27 37.0 68 18 125/70 96 Room Air 10/19/16 22:55 Exam General: The patient is in good spirits and able to sit on the side of the bed. He is in no apparent distress HEENT: Head is atraumatic and normocephalic. Eyes: Pupils are equally round and reactive to light and accommodation. Extraocular muscles are intact. Sclera are white, anicteric. Subconjunctival mucosa is pink. Ears and nose are unremarkable. Oropharynx: There is no mucosal lesions, there is no thrush, there is no pharyngitis. Neck: Is supple, there are no nodes, or masses or tenderness. Chest: Is clearer to auscultation and percussion. There are no new rales, rhonchi, wheezes or rubs. Heart: Rate, rhythm is regular. There is no new murmur, rub or gallop. Abdomen: Good bowel sounds are present. Abdomen is obese, soft, nontender, no organomegaly or masses were appreciated. Extremities: Are symmetrical and well perfused. There is decreased edema bilaterally, there is no cellulitis, no rash. Neurologic: There are no focal neurological deficits. Cranial nerves II through XII are intact. There are no sensory or motor deficits. Patient appears more energetic Psychiatric: Patients mood is calm and shows no sign of agitation. The patient is in good spirits. Test 10/19/16 08:45 10/19/16 13:21 10/19/16 14:57 10/19/16 19:50 Reticulocyte Count,Calculated 1.1% (0.6-2.6) Prothrombin Time 10.2sec (8.1-12.5) Prothromb Time International Ratio 0.95ratio Iron Level 172ug/dL (35-150) Total Iron Binding Capacity 227ug/dL (250-450) Percent Iron Saturation 76%sat (15-50) Unsaturated Iron Binding 54.9ug/dL Ferritin 499ng/mL (30-400) Troponin T 0.015ug/L (0.0-0.011) Urine Color Yellow (YELLOW) Urine Appearance Clear (CLEAR,HAZY) Urine pH 5.5 (5.0-8.0) Urine Specific [place] 1.020 (1.003-1.035) Urine Protein Negativemg/dL (NEG,TRACE) Urine Glucose (UA) Negativemg/dL (NEGATIVE) Urine Ketones Negativemg/dL (NEGATIVE) Urine Occult Blood Negative (NEGATIVE) Urine Nitrite Negative (NEGATIVE) Urine Bilirubin Negative (NEGATIVE) Urine Urobilinogen Normalmg/dL (NORMAL) Urine Leukocyte Esterase Negative (NEGATIVE) Urine RBC 0-2/hpf (0-2) Urine WBC 0-5/hpf (0-5) Urine Epithelial Cells None/hpf (NONE-MOD) Urine Crystals None seen (NONE SEEN) Urine Bacteria Few/hpf (NONE-FEW) Urine Hyaline Casts None/lpf (NONE) Urine Granular Casts None seen (NONE SEEN) Urine Waxy Casts None seen (NONE SEEN) Urine Red Blood Cell Casts None seen (NONE SEEN) Urine White Blood Cell Casts None seen (NONE SEEN) Urine Mucus None seen (None Seen) Urine Trichomonas None seen (NONE SEEN) Urine Yeast None (NONE SEEN) Urinalysis Comment None Urine Culture Reflexed Not indicated Test 10/20/16 02:23 10/21/16 03:20 Hematology Comments Rbc White Blood Count 3.2th/mm3 (3.8-10.1) Red Blood Count 2.64mil/mm3 (4.40-5.80) Hemoglobin 9.3g/dL (13.8-17.2) Hematocrit 26.5% (41.0-50.0) Mean Corpuscular Volume 100.4fL (81-100) Mean Corpuscular Hemoglobin 35.2pg (27.0-35.0) Mean Corpuscular Hemoglobin Concent 35.1% (32.0-37.0) Red Cell Distribution Width 25.5% (12.3-15.4) Platelet Count 118bil/L (150-400) Neutrophils (%) (Auto) 41.1% (40-74) Lymphocytes (%) (Auto) 39.5% (14-46) Monocytes (%) (Auto) 8.8% (4-12) Eosinophils (%) (Auto) 9.4% (0-5) Basophils (%) (Auto) 0.3% (0-3) Sodium Level 139mEq/L (134-144) Potassium Level 4.3mEq/L (3.5-5.2) Chloride Level 102mEq/L (97-108) Carbon Dioxide Level 24mmol/L (18-29) Blood Urea Nitrogen 18mg/dL (8-27) Creatinine 0.85mg/dL (0.76-1.27) Estimat Glomerular Filtration Rate 96mL/min (>59) Glucose Level 174mg/dL (60-99) Calcium Level 8.9mg/dL (8.5-10.1) Phosphorus Level 3.9mg/dL (2.5-4.9) Magnesium Level 1.6mg/dL (1.6-2.6) Total Bilirubin 0.9mg/dL (0.0-1.2) Aspartate Amino Transf (AST/SGOT) 35U/L (0-50) Alanine Aminotransferase (ALT/SGPT) 10U/L (0-44) Alkaline Phosphatase 82U/L (25-160) Total Protein 6.9g/dL (6.4-8.4) Albumin 3.0g/dL (3.4-5.0) Discharge Medications Discharge Medications Gabapentin (Gabapentin) 300 Mg Capsule 300 MG PO BID (Reported) Multivit-Min/FA/Lycopen/Lutein (Centrum Silver Men Tablet) 300 Mcg-600 Mcg-300 Mcg Tablet 1 EACH PO DAILY (Reported) Tamsulosin (Flomax) 0.4 Mg Capsule 0.4 MG PO DAILY (Reported) As needed Omeprazole (Omeprazole) 20 Mg Capsule.dr 20 MG PO DAILY PRN PRN For Dyspepsia or Heartburn (Reported) Oxycodone HCl/Acetaminophen 5-325 (Endocet 5-325) 1 Each Tablet 1 TABLET PO BID PRN PRN pa (Reported) Zolpidem (Zolpidem) 5 Mg Tablet 5 MG PO HS PRN PRN For Insomnia (Reported) Additional med instructions DO NOT TAKE IMURAN. Followup Plan Disposition: Patient is being discharged home. Discharge Diet: No restrictions Discharge Activity: Limited until seen by PCP Patient Instructions Please follow up with your PCP in one week. [facility] Please follow up with Dr. Bee at his next available appointment. Provider: Esdras Hay MD Follow-up in: Other (2 months) Time spent Time spent on discharging this patient was greater than 35 minutes, over half of which was involved in counseling and coordination of care. Attending Statement Patient was seen and examined with Dr. Rodarte. Chart reviewed and agree with the above discharge summary. Rosalina Acuna DO October 21, 2016 19:10 Lonnie Dumont MD October 21, 2016 22:46
--- NOTE | 2016-11-03 09:27 | CONS ---
[address] [address] CONSULTATION REPORT PATIENT: RHONA CORRALES : 1950 MR#: [id number] ADMIT: 10/19/2016 JOB ID: [id number] DATE OF SERVICE: 10/21/2016 HISTORY OF PRESENT ILLNESS: The patient is a 66-year-old gentleman with Crohn's disease status post colectomy, chronically on Remicade, treated for the past year with Imuran (azathioprine). He was hospitalized on October 19, 2016 after presenting to his primary care provider's office appearing quite weak and pale. Laboratory studies at that time showed a hemoglobin of 4.8 with hematocrit of 13.7% and MCV of 124.5. White cell count was slightly decreased at 3.1 with 35% neutrophils and platelets were decreased at 128,000. He was not actively bleeding. He had iron studies done that showed sufficient iron and coagulation studies that showed a normal PT and INR. His reticulocyte count was relatively low at 1.1%, particularly in the setting of his anemia. He has been transfused. He is feeling a bit better. He notes that his Crohn's disease was diagnosed many years ago. He underwent surgery with Dr. Ran Cervantes in May 2010. He has been on Remicade for 2 to 2-1/2 years by his recollection, most recently in mid September, and has been on azathioprine for 1 to 1-1/2 years. He has felt "bad" for the past year. He denies any blood per rectum or dark tarry stools. He denies any hematuria. He was a very heavy drinker, primarily vodka, but quit about a year ago and attends alcoholics anonymous meetings. He denies any other significant exposures. PAST MEDICAL HISTORY: 1. Crohn's disease status post colectomy. 2. Profound anemia. 3. 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 4. Hypertension. 5. Renal lithiasis. 6. Surgical subtotal colectomy 2009. 7. Tonsillectomy. 8. Left heather arthroplasty. 9. Appendectomy. ALLERGIES: 1. PENICILLINS. 2. ASPIRIN. 3. LISINOPRIL. MEDICATIONS: 1. Tamsulosin 0.4 mg p.o. daily. 2. Multivitamin daily. 3. Protonix 40 mg p.o. b.i.d. 4. Gabapentin 300 mg p.o. b.i.d. 5. Percocet 5/325 one tablet p.o. b.i.d. p.r.n. 6. Albuterol inhaler p.r.n. 7. Nicotine patch 14 mg daily. FAMILY HISTORY: Daughter has anemia. No other family history of blood disorders. HABITS/SOCIAL HISTORY: The patient lives in [place]. He notes a former history of heavy alcohol abuse, primarily vodka, but quit about a year ago, and attends regular AA meetings. He still smokes up to half a pack cigarettes daily as he has since his 20s. REVIEW OF SYSTEMS: He denies any fevers. He has felt quite weak. No acute change in vision or hearing. No developing adenopathy. No hoarseness or dysphagia. He has some dyspnea with exertion. No chest pain. Occasional GE reflux symptoms. No nausea, vomiting, diarrhea, or constipation. No blood per rectum. No melena. No hematuria. No epistaxis or hemoptysis. No significant edema. Remaining review of systems is unremarkable. PHYSICAL EXAMINATION: This is a pleasant, slightly older gentleman in no acute distress. Vitals: T 37.09, P 67, R 20, BP 128/75, O2 saturation 95% on room air. HEENT: Conjunctivae slightly pale. Mucous membranes moist. No oral lesions. Nodes: No palpable adenopathy in the neck, axilla, or groin. Chest clear, no wheezes or crackles. Cardiac exam regular rate and rhythm with normal S1, S2. No murmurs, rubs, or gallops appreciated. Abdomen soft, nontender. Normoactive bowel tones. No splenomegaly or masses. Colostomy present and appears healthy. Extremities 1 to 2+ bilateral lower extremity edema, 1+ distal pulses. No calf tenderness. LABORATORIES: WBC 3.2 with 41% neutrophils, 40% lymphocytes, 9% monocytes, 9% eosinophils. Hemoglobin 9.3, hematocrit 26.5%, platelets 118,000. Sodium 139, potassium 4.3, BUN 18, creatinine 0.85. Glucose 175. Iron 172. TIBC 227, percent saturation 76%. Ferritin 499. AST 35, ALT 10, alkaline phosphatase 82. Total bilirubin 0.9. B12 634. Folate 15.3. Reticulocyte count 1.1%. Urine--no red cells. ASSESSMENT AND PLAN: Profound hypoproliferative macrocytic anemia in a patient with Crohn's disease status post subtotal colectomy and treatment: The patient has had increasing symptomatology over the past year. The differential diagnosis for anemia includes blood loss, inadequate red cell production, or excessive red cell destruction. As for blood loss, there has been no obvious source. However, his Crohn's disease does put him at risk. I will let Dr. Bee and the Gastroenterology team determine if further endoscopy is warranted. There is no evidence of hemolysis on his smear or other findings to suggest increased red cell destruction. Findings are most likely due to inadequate red cell production. There is no evidence of inadequate iron B12 or folate. Kidney function is normal. Liver function tests are normal, and he quit drinking alcohol about a year ago, although marrow suppression from chronic alcohol abuse could play a role, the most likely etiology of current findings is his 1 to 1-1/2 year history of treatment with Imuran (azathioprine). This causes a classic macrocytic anemia, as is seen in this patient, and can also result in significant leukopenia and thrombocytopenia, also present in this patient. Recommend transfusion support for symptomatic anemia, and discontinuation of his of azathioprine. He is at risk for infection, and may benefit from prophylactic quinolone therapy until his neutropenia resolves. No indication for platelet transfusion unless he becomes symptomatic or platelets fall to less than 20,000. If discharged, please arrange followup in the Cancer Center in 2-3 weeks, with repeat CBC, differential, platelets at that time. If hematologic parameters did not improve, then marrow studies could provide additional information, as myelodysplastic syndrome remains within the differential. Thank you very much for allowing us to participate in your patient's care. [facility]
[2016-11-04] MEDS ORDERED: HYDR-4003 PO (10:34)
[2016-11-04] MEDS ORDERED: TRAM50TA2 PO (10:35)
== END 2016-10-21 17:45 | disposition home or self-care (01) | DRG 812 ==
LOC: SED 08:25 → PCC 10:23
PROVIDERS: ADMIT Internal Medicine Infectious Disease; ATTEND Internal Medicine Infectious Disease
PROC: 30233N1 Transfusion of Nonautologous Red Blood Cells into Peripheral Vein, Percutaneous Approach (ICD-10-PCS; principal; 2016-10-19)
PROC: 30233N1 Transfusion of Nonautologous Red Blood Cells into Peripheral Vein, Percutaneous Approach (ICD-10-PCS; 2016-10-20)
DX: D53.9 Nutritional anemia, unspecified (principal); K50.90 Crohn's disease, unspecified, without complications; D61.818 Other pancytopenia; F17.210 Nicotine dependence, cigarettes, uncomplicated; N40.0 Benign prostatic hyperplasia without lower urinary tract symptoms; G47.00 Insomnia, unspecified; T45.1X5A Adverse effect of antineoplastic and immunosuppressive drugs, initial encounter

== ENCOUNTER 2016-11-21 23:15 | Observation (INO) | payer MEDICARE ==
[~2016-11-21] VITALS: Ht 172.7 cm; Wt 101.9 kg
[~2016-11-21 23:15] MED LIST changes: -ACET-1890 PO; -ALBU8.5H4 IH; -ATRINH INH; -AZTH50T PO; +GABA-502 PO; +HYDR-4003 PO; -LOSA100T29 PO; -LOVA40TA PO; -MOME13HF IH; +MULT-1104 PO; -OMEP-113 PO; +OMEP20CA11 PO; -OXYC5CAP4 PO; -SERT25TA2 PO; -SULF1TAB35 PO; +TAMS0.4C98 PO; +TRAM50TA2 PO
[2016-11-21 23:19] VITALS: BP 129/76; PULSE 91; RESP 24; O2SAT 93
--- NOTE | 2016-11-21 23:53 | ED.REPORT ---
HPI-General Illness Date of Service Nov 21, 2016 ED Provider: Lonnie Bates MD Pt is a 66 y.o. male with a hx of HTN and Crohn's s/p subtotal colectomy who presents to the ED referred from for an elevated troponin of 0.03. Pt states that he has had SOB for several years but 4 days ago he noticed increased bilateral lower extremity swelling in association with his SOB. He went into for evaluation, they called him with his lab results at 1900 today and told him to come into the ED due to his elevated troponin. He denies chest pain, fever, nausea, vomiting, and diaphoresis. Nursing Notes Stated Complaint: SHORTNESS OF BREATH Chief Complaint: Respiratory Complaints Nursing Notes Reviewed: Yes Allergies: Coded Allergies: Penicillins (Verified Allergy, Unknown, UNKNOWN, 11/21/16) aspirin (Verified Allergy, Unknown, R/T CROHNS, 11/21/16) lisinopril (Verified Adverse Reaction, Severe, cough, 11/21/16) Scheduled Gabapentin (Gabapentin) 300 Mg Capsule 300 MG PO BID Multivit-Min/FA/Lycopen/Lutein (Centrum Silver Men Tablet) 300 Mcg-600 Mcg-300 Mcg Tablet 1 EACH PO DAILY Tamsulosin (Flomax) 0.4 Mg Capsule 0.4 MG PO DAILY Scheduled PRN Hydrocodone-Acetaminophen 5-325 mg (Hydrocodone-Acetaminophen 5-325 mg) 1 Each Tablet 1 TABLET PO Q4H PRN PRN For Pain Omeprazole (Omeprazole) 20 Mg Capsule.dr 20 MG PO DAILY PRN PRN For Dyspepsia or Heartburn Tramadol (Tramadol) 50 Mg Tablet 50 MG PO HS PRN PRN For Pain Zolpidem (Zolpidem) 5 Mg Tablet 5 MG PO HS PRN PRN For Insomnia General Time Seen by : 23:53 Chief Complaint Other (Elevated troponin) Hx Obtained From: Patient Arrived By: Walk-in Sudden in Onset?: Yes Onset Occurred: 1 - 4 hours ago Symptom Duration: Since onset Severity: Current: No pain currently Severity: Maximum: No pain Past Medical History Past Medical History Crohn's disease s/p subtotal colectomy 2009. 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 HTN Kidney stones Past Surgical History S/p Subtotal colectomy 2009. Percutaneous drainage of abdomen/pelvic abscess by Interventional Radiologist in September 2013. S/P tonsillectomy. S/p Left hemiarthroplasty. Smoking History Current Every Day Smoker, Light Tobacco Smoker Social History Alcohol Use: Denies alcohol use Ambulatory Status Independent Review of Systems Elevated troponin. Full Review of Systems Constitutional: Denies: Fever Respiratory: Reports: Shortness of breath Cardiovascular: Denies: Chest pain GI: Denies: Nausea, Vomiting Musculoskeletal: Reports: Extremity swelling (Lower extremities) Skin: Denies Diaphoresis Complete sys rev & neg: except as marked. Physical Exam Vital Signs Vital Signs Date Time Temp Pulse Resp B/P Pulse Ox O2 Delivery O2 Flow Rate FiO2 11/22/16 00:25 93 22 142/89 94 Room Air 11/21/16 23:19 36.9 91 24 129/76 93 Room Air Initial VS: Reviewed Extremities: Vascular intact, Neuro intact Neurologic: Alert, Oriented, Nonfocal Psychiatric: Mood/affect normal, Behavior normal, Normal thought content General/Constitutional: Awake, Alert, No acute distress, Well appearing, Well developed, Well hydrated, Well nourished, Not toxic appearing Head / Eyes: Atraumatic, Normocephalic Respiratory / Chest: Atraumatic, No respiratory distress Crackles to bases of lungs Cardiovascular: Heart rate NL, Regular rhythm, Heart sounds NL, Cap refill not delayed, Peripheral circulation NL Lower Ext Edema: Positive: Bilateral 3+ Abdomen: Soft, Non-tender, BS normoactive, No distention Colostomy bag on right Skin: Warm, Dry, Intact Rash / Lesion Notes: Brawny skin changes overlying edema, venous stasis dermatitis. Interpretation & Diagnostics Lab Results Interpretation Result Diagram: 11/22/16 0022 11/22/16 0022 Test 11/22/16 00:22 White Blood Count 7.0th/mm3 (3.8-10.1) Red Blood Count 3.09mil/mm3 (4.40-5.80) Hemoglobin 10.4g/dL (13.8-17.2) Hematocrit 32.3% (41.0-50.0) Mean Corpuscular Volume 104.5fL (81-100) Mean Corpuscular Hemoglobin 33.7pg (27.0-35.0) Mean Corpuscular Hemoglobin Concent 32.2% (32.0-37.0) Red Cell Distribution Width 21.7% (12.3-15.4) Platelet Count 142bil/L (150-400) Neutrophils (%) (Auto) 51.9% (40-74) Lymphocytes (%) (Auto) 35.7% (14-46) Monocytes (%) (Auto) 10.7% (4-12) Eosinophils (%) (Auto) 1.1% (0-5) Basophils (%) (Auto) 0.3% (0-3) Prothrombin Time 9.9sec (8.1-12.5) Prothromb Time International Ratio 0.93ratio Activated Partial Thromboplast Time 23.6sec (22.8-33.0) Sodium Level 140mEq/L (134-144) Potassium Level 3.8mEq/L (3.5-5.2) Chloride Level 98mEq/L (97-108) Carbon Dioxide Level 24mmol/L (18-29) Blood Urea Nitrogen 13mg/dL (8-27) Creatinine 0.94mg/dL (0.76-1.27) Estimat Glomerular Filtration Rate 85mL/min (>59) Glucose Level 111mg/dL (60-99) Calcium Level 9.1mg/dL (8.5-10.1) Magnesium Level 1.7mg/dL (1.6-2.6) Total Bilirubin 0.3mg/dL (0.0-1.2) Aspartate Amino Transf (AST/SGOT) 31U/L (0-50) Alanine Aminotransferase (ALT/SGPT) 21U/L (0-44) Alkaline Phosphatase 117U/L (25-160) Pro-B-Type Natriuretic Peptide 152.2pg/mL (0-376) Total Protein 8.2g/dL (6.4-8.4) Albumin 3.2g/dL (3.4-5.0) Hold Man Top Tube Received (Received) ECG Interpretation ECG Interpretation: New Q AVF from prior 10/19/16 Time: 00:04 Interpreted by: ED physician Normal ECG Interpretation: Normal rate (86), Normal sinus rhythm X-Ray Chest Interpretation Chest Xray Interpretation: IMPRESSION: 1. No acute cardiopulmonary disease. Dictated by: Jakub Zapien M.D. on 11/21/2016 at 15:22 Approved by: Jakub Zapien M.D. on 11/21/2016 at 15:22 Re-Eval/Medical Decision Med Decision/Clinical Course 66-year-old was worsening edema and an elevated troponin noted an outpatient clinic today, referred in for evaluation and admission. He does not need of an elevated troponin, and presumptively some element of strain ischemia versus non-STEMI. He is admitted for completion of rule out rule in protocol, echocardiography this morning, and diuresis of his ongoing peripheral edema. Source of Hx: Old records Time of Eval: 01:49 Re-Evaluation/Progress Note: Pt rechecked. Discussed plan for admit, pt understands and agrees with plan. Consultation : Referral / Consult Name: NeilmaryMarisela Rodolfo MOODY Consulted With: Hospitalist Call Returned at: 01:52 Heat Treat Inspector: Will see patient, Agrees with eval, Agrees with plan, Accepts admit Note: Discussed pt conditon. Accepts admit. Counseled Regarding: Diagnosis, Lab results, Need for admission Discharge & Departure Primary Impression: CHF (congestive heart failure) Additional Impression: Elevated troponin Disposition: ADMITTED TO HOSPITAL Discharge Condition All VS Reviewed: Yes Condition: Improved Referrals: Dino David DO (PCP) Sonia Attestation Portions of this note were transcribed by Tamy Hand. I, Dr. Bates personally performed the history, physical exam and medical decision-making; I reviewed and confirmed the accuracy of the information in the transcribed note. Signed by: Sonia Rivera, 11/22/16 and 0154. copies to: Dino David Christopher W MD Nov 21, 2016 23:53 TAMY HAND Nov 22, 2016 00:01
[2016-11-22] VITALS (10 sets, daily range): BP systolic 134–163; BP diastolic 54–89; PULSE 60–93; RESP 16–28; O2SAT 94–97
[2016-11-22 00:33] LABS: BASOPHILS % (AUTO) 0.3 % (0-3); EOSINOPHILS % (AUTO) 1.1 % (0-5); MONOCYTES % (AUTO) 10.7 % (4-12); Mean Corpuscular Hemoglobin 33.7 pg (27.0-35.0); Mean Corpuscular Volume 104.5 fL (81-100); NEUTROPHILS % (AUTO) 51.9 % (40-74); Platelet Count 142 bil/L (150-400)
[2016-11-22 00:52] LABS: INR 0.93 ratio
[2016-11-22 01:14] LABS: Magnesium 1.7 mg/dL (1.6-2.6); TROPONIN T 0.026 ug/L (0.0-0.011)
[2016-11-22 02:51] LABS: APPEARANCE,URINE CLEAR (CLEAR,HAZY); COLOR,URINE YELLOW (YELLOW); OCCULT BLOOD,URINE NEGATIVE (NEGATIVE); PH,URINE 5.5 (5.0-8.0); UROBILINOGEN,URINE NORMAL (NORMAL)
[2016-11-22] MEDS ORDERED: Ondansetron 2 mg/mL 2 mL Inj IVPUSH PRN (03:05)
[2016-11-22] MEDS ORDERED: Alum-Mag Hydrox-Simeth 30 mL Suspension PO PRN (03:05)
[2016-11-22] MEDS ORDERED: Polyethylene Glycol (PEG) 17 Gm Powder PO PRN (03:05)
--- NOTE | 2016-11-22 04:04 | PCM.HPMED ---
Subjective Date of Service Nov 22, 2016 Primary Provider: Admitting Physician: Marisela Alegria DO Primary Care Physician: Dino David DO Attending Physician: Marisela Alegria DO Admit Status: From the Emergency Department Chief Complaint: Lower extremity swelling History of Present Illness: This is a 66-year-old male with past medical history significant for COPD, hypertension, and Crohn's disease status post subtotal colectomy who presented to [facility] due to elevated troponin. The patient was at urgent care this afternoon due to progressively worsening lower extremity swelling over the past month. Associated symptoms include progressively worsening shortness of breath over the last year which has severely limited his exercise capacity as well as intermittent midepigastric pressure that is not worse with exertion. At the urgent care lab work included a proBNP of 126.6 and a troponin of 0.033. The patient was called at home and asked to go to the emergency department due to the elevated troponin. He denies any orthopnea or paroxysmal nocturnal dyspnea. He denies any chest pain or pressure, diaphoresis, nausea, vomiting, diarrhea, headaches, visual changes. In the emergency department initial vital signs were temperature 36.9 Celsius, pulse 91, respiratory rate 24, blood pressure 129/76, satting at 93% on room air. In our emergency department initial lab work showed WBC of 7.0, hemoglobin of 10.4, hematocrit 32.3, weight was 142. Glucose 111, troponin 0.026, albumin 3.2. Urinalysis showed no concerning abnormalities. PT 9.9, INR 0.93, APTT 23.6. EKG showed a sinus rhythm with rate of 90. Q wave in lead aVF that is new compared to EKG several months ago. Chest x-ray showed no acute cardiopulmonary disease. Review of Systems: A comprehensive review of systems was conducted with the patient and found to be negative except as above in the History of Present Illness. Allergies Coded Allergies: Penicillins (Verified Allergy, Unknown, UNKNOWN, 11/21/16) aspirin (Verified Allergy, Unknown, R/T CROHNS, 11/21/16) lisinopril (Verified Adverse Reaction, Severe, cough, 11/21/16) Home Medications diclofenac 1 % topical gel apply (2G) by topical route 3 times every day to the affected area(s) as needed. gabapentin 300 mg capsule TAKE ONE CAPSULE BY MOUTH 2 TIMES DAILY hydrocodone 5 mg-acetaminophen 325 mg tablet take 1 tablet by oral route every 6 hours as needed for pain. no more than 2 max a day. Prilosec 20 mg capsule,delayed release take 1 capsule by oral route every day before a meal Remicade 100 mg intravenous solution infuse (5MG/KG) by intravenous route every 8 weeks over trazodone 100 mg tablet take 1 tablet by oral route at bedtime. triamcinolone acetonide 0.1 % topical cream apply by topical route 2 times every day a thin layer to the affected area(s) Tylenol 325 mg Tab take 1 tablet (325MG) by oral route every 4 hours as needed Ventolin HFA 90 mcg/actuation aerosol inhaler inhale 2 puff by inhalation route every 4 - 6 hours as needed Vitamin D3 5,000 unit tablet 1 tab by mouth one time daily PMH Tobacco use Crohn's disease status post subtotal colectomy Hypertension Obstructive sleep apnea History of medication-induced anemia BPH Surgical History Status post subtotal colectomy in 2009 Percutaneous drainage of abdomen/pelvic abscess in September 2013 Tonsillectomy Left hemiarthroplasty. Family History Father had hypertension, depression, alcoholism, coronary artery disease. Mother: Heart disease. Social History Hx Alcohol Use: Yes (patient reports drinking alcohol once per month.) Hx Substance Use: No Hx Tobacco Use: Yes (3 to 5 cigarrete a day. Denied needs for nicotine patch.) Smoking Status: Current Every Day Smoker Exam Vital Signs Vital Sign - Last Date Time Temp Pulse Resp B/P Pulse Ox O2 Delivery O2 Flow Rate FiO2 11/22/16 02:28 79 26 134/54 94 Room Air 11/21/16 23:19 36.9 Exam General: No acute distress, well-developed, well-nourished, appropriately interactive HEENT: Normocephalic, atraumatic. External ears without defect. Pupils equal, round, and reactive to light and accommodation. Anicteric sclerae, moist conjunctivae, and no lid lag. Oropharynx free of erythema and cobble stoning with moist mucosa. Neck: Supple with full range of motion. No jugular venous distension. No bruits. No lymphadenopathy or thyromegaly. Cardiovascular: Regular rate and rhythm with no murmurs, rubs, or gallops appreciated Pulmonary: Clear to auscultation bilaterally with no crackles, wheezes, or rhonchi. Normal respiratory effort with no use of accessory muscles. Abdomen: Bowel tones present. Colostomy bag present. Soft, nontender, nondistended. No hepatosplenomegaly or masses appreciated. Extremities: No clubbing, cyanosis. 1+ lower extremity pitting edema bilaterally up to knees. Skin: Normal temperature, turgor, and texture; no rash, ulcers, or subcutaneous nodules appreciated. Neurological: Cranial nerves grossly intact. Normal muscle strength, tone, and bulk. Reflexes, coordination, and sensory function within normal limits. No known gait impairment. Psychiatric: Normal mood and affect. Alert and oriented to person, place, and time. Lab and Diagnostics Result Diagram: 11/22/16 0022 11/22/16 0022 X-Rays, CTs and MRIs Chest x-ray on 11/21/2016: IMPRESSION: 1. No acute cardiopulmonary disease. Dictated by: Jakub Zapien M.D. on 11/21/2016 at 15:22 Assessment & Plan This is a 66-year-old male with history of hypertension who initially presented to urgent care with progressively worsening lower extremity edema over the last month and accompanying shortness of breath and was subsequently found to have a troponin of 0.033. The patient was asked that time to go to emergency department. In the emergency department repeat troponin was 0.026. Differential diagnosis of the lower extremity edema includes thyroid disorder, heart failure, medication induced, cirrhosis, hypoalbuminemia, trauma, lymphatic obstruction. Elevated troponin, present on admission, ongoing: -Patient has no symptoms of chest pain or pressure. He does have exertional shortness of breath has been present for 1 year. -Initial troponin 0.03 3 repeat troponin 0.026. We will trend troponins 3. -Patient on telemetry. -Consider stress test in am. Lower extremity edema, present on admission, ongoing: -Patient denies any orthopnea or paroxysmal nocturnal dyspnea. -Of note albumin is 3.2. -We will order TSH and free T4 -Echocardiogram ordered and pending Macrocytic anemia, present on admission, ongoing: -On admission hemoglobin 10.4, hematocrit 32.3, MCV 104.5. -Several months ago patient required 5 units PRBCs due to a hemoglobin of 4.8. Oncology felt this is likely secondary to Imuran. -Patient denies alcohol use. -Vitamin B12 1 10/19/2016 634.. Folate on 10/19/2016 15.3-up. Elevated blood glucose level, present on admission, ongoing: -On admit glucose 111. -Hemoglobin A1c on 10/18/2016 was 5.3. Tobacco use, present on admission: -NicoDerm patch ordered. Crohn's disease, present on admission, stable: -Outpatient follow-up. History of COPD, present on admission: -Albuterol inhaler ordered to be used as needed. -Will need outpatient followup and possible addition of additional inhaler. DVT prophylaxis with Lovenox. Patient is admitted under observation status with expected length of stay less than 2 midnights due to severity of presenting symptoms, risk of adverse event, and complexity of treatment plan. Pain Evaluation: Adequate Pain Control Resuscitation Status: CPR: Attempt Resuscitation Attending Statement The patient was seen and examined together with house staff on 11/22/2016 and I agree with the history, exam and plan as outlined in the note above. Lonnie Motta DO Nov 22, 2016 03:38 Marisela Alegria DO Nov 22, 2016 05:52
[2016-11-22] MEDS: HYDROcodone-APAP 5-325 mg Tablet PO PRN ×3 (04:30→22:45)
--- NOTE | 2016-11-22 06:29 | NUR ---
Admit Admitted to room 2001, @ approx 0300, admission interview and med req completed, Immediate pain addressed with scheduled [place]. Room Air, Saline locked , Tele: SR [id number].
--- NOTE | 2016-11-22 10:15 | NUR ---
Social Work: Initial Assessment D: Per EMR review, pt is 66 year old male admitted for CHF, Elevated Troponin. Pt is [facility] with Medicare; pt has no LTC insurance or VA benefits. PCP is Phill David DO. NOK is Kam Gallagher, son, [phone]. AD info provided to pt by MACHINE LEAD BURNER. No RA score entered. MACHINE LEAD BURNER met with pt at bedside. Sw role explained. See initial assessment. Pt lives at home, alone, in a single story home in [place]. Pt uses a cane for ambulation and is I with ADLs. Pt continues to drive, has never had HH but has a history at [facility]. Pt anticipates discharge home when he is ready and states that he drove himself to the hospital and intends to drive himself home. A: Pt who is I at baseline. P: Anticipate pt to discharge home via POV once medically stable; KAYLYN to continue to follow. KAYLYN Menard Addendum: 11/22/16 at 1019 by MELBA STEWART Amended: Links added.
[2016-11-22] MEDS: Furosemide 10 mg/mL 4 mL Inj IVPUSH SCH (10:17)
[2016-11-22] MEDS ORDERED: Furosemide 10 mg/mL 4 mL Inj IVPUSH ONE (14:50)
--- NOTE | 2016-11-22 15:45 | PCM.PNMED ---
Subjective Date of Service Nov 22, 2016 Subjective Mr. Gallagher continues to experience significant, though much improved SOB and DENIS. He states that the swelling in his legs is much improved, and is overall feeling much better. He denies chest pain, abdominal pain, pain with deep inspiration, dysuria, or diarrhea. There were no significant overnight events. Comprehensive ROS negative except as outlined above. Exam Vital Signs Vital Sign - Last Date Time Temp Pulse Resp B/P Pulse Ox O2 Delivery O2 Flow Rate FiO2 11/22/16 12:00 37.1 70 18 150/77 97 Room Air Intake and Output 11/21/16 11/21/16 11/22/16 Cumulative From/Thru 15:00 23:00 07:00 11/21/16 23:19 - 11/22/16 06:13 Intake Total 200 ml 200 ml Output Total 0 ml 0 ml Balance 200 ml 200 ml Intake Oral 200 ml 200 ml Output Urine Total 0 ml 0 ml # Bowel Movements 0 0 Exam Gen: A/O x3 pleasant cooperative man in mild acute distress secondary to SOB Neck: Supple, non tender, Full ROM, no visible JVD HEENT: PERRL, EOMI, no scleral icterus, no conjunctival pallor CV: RRR, 2/6 crescendo decrescendo systolic murmur best heard at right sternal border Resp: Lungs with mild bibasilar crackles, no wheezing or rhonchi Abdomen: Soft non tender, no organomegaly, no rebound guarding or masses Extr: Moderate BL pitting LE edema, no cyanosis or clubbing Neuro: CN 2-12 grossly intact, no focal neurologic deficit Psych: Pleasant and appropriate mood and affect IVs and Medications Medications Reviewed: Medications were reviewed in detail Lab and Diagnostics Item Value Date Time Hematocrit 32.3 % L 11/22/16 0022 Mean Corpuscular Volume 104.5 fL H 11/22/16 0022 Mean Corpuscular Hemoglobin 33.7 pg 11/22/16 002 Mean Corpuscular Hemoglobin Concent 32.2 % 11/22/16 0022 Red Cell Distribution Width 21.7 % H 11/22/16 0022 Neutrophils (%) (Auto) 51.9 % 11/22/16 0022 Lymphocytes (%) (Auto) 35.7 % 11/22/16 0022 Monocytes (%) (Auto) 10.7 % 11/22/1621 Eosinophils (%) (Auto) 1.1 % 11/22/1621 Basophils (%) (Auto) 0.3 % 11/22/1621 Estimat Glomerular Filtration Rate 85 mL/min 11/22/1621 Calcium Level 9.1 mg/dL 11/22/1621 Magnesium Level 1.7 mg/dL 11/22/1621 Total Bilirubin 0.3 mg/dL 11/22/1621 Aspartate Amino Transf (AST/SGOT) 31 U/L 11/22/1621 Alanine Aminotransferase (ALT/SGPT) 21 U/L 11/22/1621 Alkaline Phosphatase 117 U/L 11/22/1621 Troponin T 0.021 ug/L H 11/22/16716 Pro-B-Type Natriuretic Peptide 152.2 pg/mL 11/22/1621 Total Protein 8.2 g/dL 11/22/1621 Albumin 3.2 g/dL L 11/22/1621 Prothrombin Time 9.9 sec 11/22/1621 Prothromb Time International Ratio 0.93 ratio 11/22/1621 Activated Partial Thromboplast Time 23.6 sec 11/22/1621 Result Diagram: 11/22/162111/22/1621 X-Rays, CTs and MRIs Chest x-ray on 11/21/2016: IMPRESSION: 1. No acute cardiopulmonary disease. Dictated by: Jakub Zapien M.D. on 11/21/2016 at 15:22 . Assessment & Plan This is a 66-year-old male with history of hypertension who initially presented to urgent care with progressively worsening lower extremity edema over the last month and accompanying shortness of breath and was subsequently found to have a troponin of 0.033. Patient with initially elevated but now downtrending troponin. SOB improved with Lasix but still experiencing some lingering SOB, and with persistent but improved LE edema. Patient will be diuresed a further 24 hours with concurrent administration of Beta-blockade which is a novel drug for him. Elevated troponin of uncertain significance, present on admission, ongoing: -Likely secondary to congestive heart failure -Patient has no symptoms of chest pain or pressure. He does have exertional shortness of breath has been present for 1 year. -Initial troponin 0.03 3 repeat troponin 0.026. Troponin elevated but downtrending -Patient on telemetry. -Consider stress test in am as an outpatient Lower extremity edema, present on admission, ongoing: -Likely secondary to congestive heart failure -Of note albumin is 3.2. -We will order TSH and free T4 -Echocardiogram ordered and pending Acute on chronic congestive heart failure likely diastolic, POA. Active -Lasix IV -Metoprolol Tartrate 25 mg PO BID -Tele as above -ECHO as above Macrocytic anemia, present on admission, ongoing: -On admission hemoglobin 10.4, hematocrit 32.3, MCV 104.5. on admission -Several months ago patient required 5 units PRBCs due to a hemoglobin of 4.8. Oncology felt this is likely secondary to Imuran. -Patient denies alcohol use. -Vitamin B12 1 10/19/2016 634.. Folate on 10/19/2016 15.3-up. Elevated blood glucose level, present on admission, ongoing: -On admit glucose 111. -Hemoglobin A1c on 10/18/2016 was 5.3. Tobacco use, present on admission: -NicoDerm patch ordered. -Patient counseled on smoking cessation Crohn's disease, present on admission, stable: -Outpatient follow-up. History of COPD, present on admission: -Albuterol inhaler ordered to be used as needed. -Will need outpatient followup and possible addition of additional inhaler. Disposition: Patient will require a further 24 hours of IV diuresis and continued inpatient monitoring to assess for response to both diuretic and beta leon therapy both of which are new to him. Pain Evaluation: Adequate Pain Control VTE Prophylaxis: Sub-Q Enoxaparin Resuscitation Status: CPR: Attempt Resuscitation Attending Statement The patient was seen and examined together with Dr. Norris on 11/23/16 and I agree with the history, exam and plan as outlined in the note above. Julian Norris DO Nov 22, 2016 15:45 Vickie Amado DO Nov 23, 2016 14:44
--- NOTE | 2016-11-22 16:43 | NUR ---
Pain P-pain in shoulders from arthritis -12/23 I-Oxycodan 5mg 1tab administered E-reassessment pt states pain at 2-08/23 S- bed in low locked position, call light within reach, upper bed rails up only, safety/non-slip socks on.
--- NOTE | 2016-11-22 19:45 | NUR ---
BRIANNA explained and signed. Copy of REED given to pt.
[2016-11-23 02:19] VITALS: BP 138/73; PULSE 75; RESP 20; O2SAT 96
[2016-11-23] MEDS: HYDROcodone-APAP 5-325 mg Tablet PO PRN (02:36)
[2016-11-23 02:46] LABS: BASOPHILS % (AUTO) 0.3 % (0-3); MONOCYTES % (AUTO) 8.2 % (4-12); Mean Corpuscular Hemoglobin 33.3 pg (27.0-35.0); Mean Corpuscular Volume 104.3 fL (81-100); NEUTROPHILS % (AUTO) 57.5 % (40-74); Platelet Count 135 bil/L (150-400)
[2016-11-23 03:06] LABS: INR 1.21 ratio
[2016-11-23 03:13] LABS: Magnesium 1.5 mg/dL (1.6-2.6); Phosphorus 4.5 mg/dL (2.5-4.9)
[2016-11-23 05:42] VITALS: PULSE 75
--- NOTE | 2016-11-23 06:51 | NUR ---
Pain/ I&0s Pt had a difficult time getting comfortable while in the bed and was up and down all through the night. Pt did get some relief from 2 [place] tabs but also became itchy from the medication but not enough to require benadryl. Pt had not been using the urinal so that we could measure I/O as accurately as possible during the dayshift and the beginning of night time babysitter. I explained to the pt why we need to measure all output including urine and colostomy content. The pt now understands why we are measuring and has been compliant with using the urinal at this time.
[2016-11-23] MEDS ORDERED: Potassium Chloride 20 mEq SR Tablet PO ONE (07:10)
[2016-11-23] MEDS ORDERED: Magnesium Sulf 2 Gm/50mL Water 2 GM in IV Premix 1 EACH IV ONE (07:10)
[2016-11-23 07:47] VITALS: BP 132/80; PULSE 64; RESP 16; O2SAT 95
[2016-11-23] MEDS: Furosemide 10 mg/mL 4 mL Inj IVPUSH SCH (07:51)
[2016-11-23 11:57] VITALS: BP 124/76; PULSE 71; RESP 18; O2SAT 92
[2016-11-23] MEDS ORDERED: METO25TA6 PO (12:22)
--- NOTE | 2016-11-23 12:54 | PCM.DIMED ---
Julian Norris DO 11/23/16 1227: Discharge Instructions Date of Service Nov 23, 2016 Dates of Hospitalization Nov 22, 2016 at 02:07 Discharge Diagnosis Discharge Diagnosis Elevated troponin of uncertain significance: Elevated troponin in the blood is a sign that your heart is under stress, in your case your value was elevated likely because both you had too much fluid in your body, and you have a stiff heart valve the heart was trying to push through. The combination of the above likely put your heart under stress which caused this elevated lab value. Lower extremity edema: Your legs got swollen on your because your heart wasn't working quite as well as it should which caused the fluid to back up and accumulate in your lungs. Acute on chronic congestive heart failure likely diastolic: It looks like you are in the early stages of heart failure. This is a problem that can be managed with medication and lifestyle changes, such as reducing the amount of salt in your diet and getting 150 minutes of moderate intensity exercise such as walking or swimming. Macrocytic anemia, present on admission, ongoing: This just means that your blood cells are a little bigger than normal and there are fewer of them than we would like. This is most often due to a lack of Vitamin B12 in the diet, you can correct this by either taking a multivitamin or eating more lean protein in your diet. Elevated blood glucose level: Your blood sugar was a little high when you came in. This was most likely because of the stress your body was under with your heart troubles. Just eat a balanced diet without too much carbohydrates such as bread, rice, pasta, or sweet desserts and you should be able to avoid the onset of diabetes. Your most recent blood level that tracks blood sugar over time did not indicate that you have diabetes. Continue to follow up with your primary care provider further screening for diabetes in the future. Tobacco use, present on admission: The number 1 cause of among smokers is heart attack. Given that your heart is already showing some signs of stress I cannot emphasize enough how important it is for you to quit smoking. Follow up with your primary care provider for further evaluation and resources to help you quit. Crohn's disease: Continue to follow up with your doctors who are tracking this problem for you. History of COPD: Yet another very good reason to stop smoking. When your heart and lungs both start going wrong your health can get much worse relatively quickly. You are still a relatively young man and could have many more healthy years if you begin to make more healthy choices. Medication Instructions Additional med instructions We have added a medication called Metoprolol Tartrate, 25 mg, twice per day. This is a medication that reduces the amount of work your heart has to do to pump blood. This will reduce the stress upon your heart and help your heart failure from getting worse. Potential side effects to look out for on this medication are fatigue, and dizziness upon standing from a seated or lying position. In the first few weeks of taking this medication take extra care when standing, particularly first thing in the morning as people have been known to faint as a result of this medication. When you are getting up in the morning sit on the edge of the bed for a moment to collect yourself, and then be sure there is something sturdy nearby you can steady yourself with should you get dizzy. You should also fill the prescription you have previously gotten for Furosemide 20 mg daily. This is a water pill that will help you from accumulating water in your legs and lungs in the future. Diet Discharge Diet: Heart Healthy Activity Discharge Activity: No restrictions Call your provider Call your provider for: Fever or Chills, Shortness of breath, Bleeding, Chest pain, Vomitting, Excessive diarrhea, Weakness (unilateral) Patient Instructions Follow-up plan Follow up with your primary care provider Dr. David within 2 weeks. Follow-up Provider: Dino David DO Follow-up with PCP in: 2 weeks Vickie Amado DO 11/23/16 1450: Discharge Instructions Attending's Statement The patient was seen and examined together with Dr. Norris on 11/23/16 and I agree with the history, exam and plan as outlined in the note above. Julian Norris DO Nov 23, 2016 12:27 Vickie Amado DO Nov 23, 2016 14:50
--- NOTE | 2016-11-23 15:45 | NUR ---
Social Work Note: Discharge Data& Assessment: Per pt is medically ready to discharge. Mark Gallagher is a 66 year old male admitted under observation on 11/22/2016 for CHF and elevated troponin. Per pt is medically improved and ready to discharge home. SW met with pt at bedside to confirm discharge plan and assess for any unmet needs. Pt plans to drive himself home. Pt politely declined SW calling his sons to notify them of his discharge, pt explained " I would like to do that myself." Pt denies any other needs and feels he is ambulating at his baseline. No other discharge needs identified. Plan: Per pt is medically ready to discharge home via POV. Pt denies any other needs. No other discharge needs identified. KAYLYN Childress
--- NOTE | 2016-11-23 16:40 | NUR ---
Discharge Pt discharged to home at ~1500 today. Pt given discharge educational materials on metoprolol and CHF booklet. Pt's IV access D/C'd and intact. Pt verbalized that he already had a f/u appointment with his PCP. Pt verbalized understanding of all discharge instructions. All belongings accompanied Pt at time of discharge.
--- NOTE | 2016-11-23 17:08 | PCM.DC.MED ---
Discharge Summary Date of Service Nov 23, 2016 Dates of Hospitalization Date of Hospital Admission Nov 22, 2016 at 02:07 Date of Discharge: Nov 23, 2016 Providers: Admitting Physician: Marisela Alegria DO Primary Care Physician: Dino David DO Attending Physician: Marisela Alegria DO Diagnosis at Time of Discharge Diagnosis at Time of Discharge Elevated troponin of uncertain significance, present on admission, stable Lower extremity edema, present on admission, improved Acute on chronic congestive heart failure likely diastolic, POA. Improved Macrocytic anemia, present on admission, ongoing: Elevated blood glucose level, present on admission, ongoing: Tobacco use, present on admission: Crohn's disease, present on admission, stable: History of COPD, present on admission: . Procedures XRay, CTs & MRIs Chest x-ray on 11/21/2016: IMPRESSION: 1. No acute cardiopulmonary disease. Dictated by: Jakub Zapien M.D. on 11/21/2016 at 15:22 . Cardiac Echo Impression EF 60-65% No focal wall motion abnormalities Mild Aortic stenosis Per verbal report from Dr. Greenberg Brief History Taken from History and Physical composed by Dr. Lonnie Zambrano on 11/22/16 This is a 66-year-old male with past medical history significant for COPD, hypertension, and Crohn's disease status post subtotal colectomy who presented to [facility] due to elevated troponin. The patient was at urgent care this afternoon due to progressively worsening lower extremity swelling over the past month. Hospital Course This is a 66-year-old male with history of hypertension who initially presented to urgent care with progressively worsening lower extremity edema over the last month and accompanying shortness of breath and was subsequently found to have a troponin of 0.033. Patient with initially elevated but now downtrending troponin. The patient was diuresed with IV lasix, and initiated on a beta leon resulting in improvement of his respiratory status and LE edema. At the time of discharge he was ambulating independently and was tolerating medical therapy without difficulty. Patient is being discharged home in stable condition Hospital course a below: Elevated troponin of uncertain significance, present on admission, ongoing: -Likely secondary to congestive heart failure -Patient has no symptoms of chest pain or pressure. He does have a history of exertional shortness of breath has been present for 1 year. -Initial troponin 0.03 3 repeat troponin 0.026. Troponin elevated but downtrending -Patient on telemetry for duration of stay -Consider stress test in am as an outpatient Lower extremity edema, present on admission, ongoing: -Likely secondary to congestive heart failure -Of note albumin is 3.2. -Thyroid studies unremarkable -Echocardiogram with EF 60-65%, mild diastolic heart failure, no wall motion abnormalities, mild aortic stenosis Acute on chronic congestive heart failure likely diastolic, POA. Active -Lasix IV, transitioned to PO upon discharge -Metoprolol Tartrate 25 mg PO BID -Tele as above -ECHO as above Macrocytic anemia, present on admission, ongoing: -On admission hemoglobin 10.4, hematocrit 32.3, MCV 104.5. on admission -Several months ago patient required 5 units PRBCs due to a hemoglobin of 4.8. Oncology felt this is likely secondary to Imuran. -Patient denies alcohol use. -Vitamin B12 1 10/19/2016 634.. Folate on 10/19/2016 15.3-up. Elevated blood glucose level, present on admission, ongoing: -On admit glucose 111. -Hemoglobin A1c on 10/18/2016 was 5.3. Tobacco use, present on admission: -NicoDerm patch -Patient counseled on smoking cessation Crohn's disease, present on admission, stable: -Outpatient follow-up. History of COPD, present on admission: -Albuterol inhaler PRN -Will need outpatient followup and possible addition of additional inhaler. . Exam Vital Signs (Last) Date Time Temp Pulse Resp B/P Pulse Ox O2 Delivery O2 Flow Rate FiO2 11/23/16 11:57 36.9 71 18 124/76 92 Room Air Exam Gen: A/O x3 pleasant cooperative man in NAD Neck: Supple, non tender, Full ROM, no visible JVD HEENT: PERRL, EOMI, no scleral icterus, no conjunctival pallor CV: RRR, 2/6 crescendo decrescendo systolic murmur best heard at right sternal border Resp: Lungs with mild bibasilar crackles, no wheezing or rhonchi Abdomen: Soft non tender, no organomegaly, no rebound guarding or masses Extr: Mild BL pitting LE edema, no cyanosis or clubbing Neuro: CN 2-12 grossly intact, no focal neurologic deficit Psych: Pleasant and appropriate mood and affect Test 11/22/16 00:22 6/9/17 02:30 11/22/16 07:17 11/23/16 02:20 Activated Partial Thromboplast Time 23.6sec (22.8-33.0) Pro-B-Type Natriuretic Peptide 152.2pg/mL (0-376) Hold Man Top Tube Received (Received) Urine Color Yellow (YELLOW) Urine Appearance Clear (CLEAR,HAZY) Urine pH 5.5 (5.0-8.0) Urine Specific [place] 1.011 (1.003-1.035) Urine Protein Negativemg/dL (NEG,TRACE) Urine Glucose (UA) Negativemg/dL (NEGATIVE) Urine Ketones Negativemg/dL (NEGATIVE) Urine Occult Blood Negative (NEGATIVE) Urine Nitrite Negative (NEGATIVE) Urine Bilirubin Negative (NEGATIVE) Urine Urobilinogen Normalmg/dL (NORMAL) Urine Leukocyte Esterase Negative (NEGATIVE) Urine RBC 0-2/hpf (0-2) Urine WBC 0-5/hpf (0-5) Urine Epithelial Cells Occasional/hpf (NONE-MOD) Urine Crystals None seen (NONE SEEN) Urine Bacteria None/hpf (NONE-FEW) Urine Hyaline Casts None/lpf (NONE) Urine Granular Casts None seen (NONE SEEN) Urine Waxy Casts None seen (NONE SEEN) Urine Red Blood Cell Casts None seen (NONE SEEN) Urine White Blood Cell Casts None seen (NONE SEEN) Urine Mucus None seen (None Seen) Urine Trichomonas None seen (NONE SEEN) Urine Yeast None (NONE SEEN) Urine Culture Reflexed Not indicated Troponin T 0.021ug/L (0.0-0.011) White Blood Count 7.0th/mm3 (3.8-10.1) Red Blood Count 3.03mil/mm3 (4.40-5.80) Hemoglobin 10.1g/dL (13.8-17.2) Hematocrit 31.6% (41.0-50.0) Mean Corpuscular Volume 104.3fL (81-100) Mean Corpuscular Hemoglobin 33.3pg (27.0-35.0) Mean Corpuscular Hemoglobin Concent 32.0% (32.0-37.0) Red Cell Distribution Width 21.2% (12.3-15.4) Platelet Count 135bil/L (150-400) Neutrophils (%) (Auto) 57.5% (40-74) Lymphocytes (%) (Auto) 31.9% (14-46) Monocytes (%) (Auto) 8.2% (4-12) Eosinophils (%) (Auto) 2.0% (0-5) Basophils (%) (Auto) 0.3% (0-3) Prothrombin Time 13.0sec (8.1-12.5) Prothromb Time International Ratio 1.21ratio Sodium Level 136mEq/L (134-144) Potassium Level 3.3mEq/L (3.5-5.2) Chloride Level 94mEq/L (97-108) Carbon Dioxide Level 26mmol/L (18-29) Blood Urea Nitrogen 19mg/dL (8-27) Creatinine 1.02mg/dL (0.76-1.27) Estimat Glomerular Filtration Rate 77mL/min (>59) Glucose Level 194mg/dL (60-99) Calcium Level 9.1mg/dL (8.5-10.1) Phosphorus Level 4.5mg/dL (2.5-4.9) Magnesium Level 1.5mg/dL (1.6-2.6) Total Bilirubin 0.6mg/dL (0.0-1.2) Aspartate Amino Transf (AST/SGOT) 28U/L (0-50) Alanine Aminotransferase (ALT/SGPT) 17U/L (0-44) Alkaline Phosphatase 111U/L (25-160) Total Protein 7.8g/dL (6.4-8.4) Albumin 2.9g/dL (3.4-5.0) Discharge Medications Discharge Medications Gabapentin (Gabapentin) 300 Mg Capsule 300 MG PO BID (Reported) Metoprolol Tartrate (Metoprolol Tartrate) 25 Mg Tablet 25 MG PO BID Prescribed by: POLINA VILLELA DO Multivit-Min/FA/Lycopen/Lutein (Centrum Silver Men Tablet) 300 Mcg-600 Mcg-300 Mcg Tablet 1 EACH PO DAILY (Reported) Tamsulosin (Flomax) 0.4 Mg Capsule 0.4 MG PO DAILY (Reported) As needed Hydrocodone-Acetaminophen 5-325 mg (Hydrocodone-Acetaminophen 5-325 mg) 1 Each Tablet 1 TABLET PO Q4H PRN PRN For Pain (Reported) Omeprazole (Omeprazole) 20 Mg Capsule.dr 20 MG PO DAILY PRN PRN For Dyspepsia or Heartburn (Reported) Tramadol (Tramadol) 50 Mg Tablet 50 MG PO HS PRN PRN For Pain (Reported) Zolpidem (Zolpidem) 5 Mg Tablet 5 MG PO HS PRN PRN For Insomnia (Reported) Additional med instructions We have added a medication called Metoprolol Tartrate, 25 mg, twice per day. This is a medication that reduces the amount of work your heart has to do to pump blood. This will reduce the stress upon your heart and help your heart failure from getting worse. Potential side effects to look out for on this medication are fatigue, and dizziness upon standing from a seated or lying position. In the first few weeks of taking this medication take extra care when standing, particularly first thing in the morning as people have been known to faint as a result of this medication. When you are getting up in the morning sit on the edge of the bed for a moment to collect yourself, and then be sure there is something sturdy nearby you can steady yourself with should you get dizzy. You should also fill the prescription you have previously gotten for Furosemide 20 mg daily. This is a water pill that will help you from accumulating water in your legs and lungs in the future. Followup Plan Disposition: Home Follow-up plan Follow up with your primary care provider Dr. David within 2 weeks. Discharge Diet: Heart Healthy Discharge Activity: No restrictions Follow-up Provider: Dino David DO Follow-up with PCP in: 2 weeks Time spent Time spent planning and coordinating discharge > 35 minutes copies to: Dino David David E DO Nov 23, 2016 17:08 Vickie Amado DO Nov 23, 2016 19:05 Disposition: Home Follow-up plan Follow up with your primary care provider Dr. David within 2 weeks. Discharge Diet: Heart Healthy Discharge Activity: No restrictions Follow-up Provider: Dino David DO Follow-up with PCP in: 2 weeks Time spent Time spent planning and coordinating discharge > 35 minutes copies to: Dino David David E DO Nov 23, 2016 17:08 Vickie Amado DO Nov 23, 2016 19:05
--- NOTE | 2016-11-26 11:11 | DRSVH ---
[facility] [address] [place] [address] Echocardiogram Report Name: RHONA CORRALES PStudy Date : 11/23/2016 Height: 68 in Hospital Exam Location: [facility] Weight: 225 lb Gender: Male BSA: 2.1 m2 : 1950 Age: 66 yrs BP: 142/71 mmHg Reason For Study: LOWER EXTREMITY SWELLING Ordering Physician: MOHSEN TEAM Performed By: Srinivas Petit Referring Physician: Antoinette CHU Interpretation Summary The left ventricle is normal in size. The ejection fraction is estimated to be 55-60%. There has been no significant change since the previous study. There are no focal wall motion abnormalities. Assessment of diastolic parameters indicates a relaxation abnormality of the left ventricle, consistent with normal filling pressures. The right ventricle is mildly dilated. Right ventricular systolic function is borderline reduced. Right ventricular systolic function has decreased since previous exam. Pulmonary artery pressures cannot be estimated because of the lack of a measurable TR jet velocity. The right atrium is mildly dilated. The left atrium is mildly dilated. The peak aortic velocity is 2.68 m/sec. The peak aortic velocity on the previous exam was 2.84 m/sec. There is no hemodynamically significant valvular aortic stenosis. The ascending aorta is mildly enlarged. Procedure: A two-dimensional transthoracic echocardiogram with color flow and Doppler was performed. The study quality was technically adequate. Comparison is made with the echocardiogram of 10/21/16. A contrast injection of Definity was performed to improve assessment of LV function. The patient was in normal sinus rhythm during the exam. Left Ventricle: The left ventricle is normal in size. There is normal left ventricular wall thickness. The ejection fraction is estimated to be 55-60%. There has been no significant change since the previous study. There are no focal wall motion abnormalities. Assessment of diastolic parameters indicates a relaxation abnormality of the left ventricle, consistent with normal filling pressures. Right Ventricle: The right ventricle is mildly dilated. Right ventricular systolic function is borderline reduced. Right ventricular systolic function has decreased since previous exam. Atria: The left atrium is mildly dilated. The right atrium is mildly dilated. The interatrial septum is intact with no evidence for an atrial septal defect. Mitral Valve: There is mild mitral annular calcification. There is trace mitral regurgitation. Aortic Valve: The aortic valve is trileaflet. The aortic valve is mildly calcified. Leaflet mobility is moderately reduced. The peak aortic velocity is 2.68 m/sec. The peak aortic velocity on the previous exam was 2.84 m/sec. There is no hemodynamically significant valvular aortic stenosis. No aortic regurgitation is present. Tricuspid Valve: The tricuspid valve is normal in structure and function. No tricuspid regurgitation. Pulmonary artery pressures cannot be estimated because of the lack of a measurable TR jet velocity. Pulmonic Valve: The pulmonic valve is normal in structure and function. There is trace pulmonic regurgitation. Great Vessels: The aortic root is normal size. The ascending aorta is mildly enlarged. The pulmonary artery is normal size. The IVC is of normal diameter and collapses greater than 50% with a sniff. This suggests a low right atrial pressure of 3 mm Hg. Pericardium/ Pleura There is no pericardial effusion. There is no pleural effusion. MMode/2D Measurements & Calculations LVIDd: 5.9 cm RA long axis asc Aorta LVIDs: 3.9 cm LA A2 area: 20.1 cm Diam: 3.7 cm FS: 33.1 % LA A4 area: 28.7 cm RA area IVSd: 1.0 cm LA length (vol): 6.6 cm LVPWd: 0.83 cm LA vol: 74.3 ml : 24.5 cm LA vol index RA vol: 89.3 ml RA : 41.5 mm2 IVC diam: 1.4 cm LV shook. diameter/BSA LV sys. diameter/BSA RVD1 (basal) RVD2 (mid) (cm/m^2): 2.7 (cm/m^2): 1.8 : 5.0 cm Doppler Measurements & Calculations Ao V2 max MV E max carlos MV E/A: 0.88 PA V2 max : 268.5 cm/sec : 60.5 cm/sec Med Peak E' Carlos : 102.5 cm/sec Ao max PG MV A max carlos PA mean PG : 28.8 mmHg : 68.7 cm/sec E/E' med: 11.4 Ao mean PG MV A dur: 0.15 sec PA Accel Time : 16.1 mmHg : 0.06 sec MV dec time Ao V2 mean PA V2 mean : 0.23 sec : 185.2 cm/sec : 71.7 cm/sec Ao V2 VTI: 47.9 cm PA pr(Accel) : 53.3 mmHg Reading Physician:LINDY
== END 2016-11-23 15:00 | disposition home or self-care (01) ==
LOC: SED 23:15 → PCC 11-22 02:07 → INTOOBSV 11-22 02:07 → PCC 11-22 02:26
PROVIDERS: ADMIT Internal Medicine; ATTEND Internal Medicine
DX: R79.89 Other specified abnormal findings of blood chemistry (principal); R60.0 Localized edema; I50.33 Acute on chronic diastolic (congestive) heart failure; D64.9 Anemia, unspecified; R73.09 Other abnormal glucose; F17.210 Nicotine dependence, cigarettes, uncomplicated; K50.90 Crohn's disease, unspecified, without complications; J44.9 Chronic obstructive pulmonary disease, unspecified; I11.0 Hypertensive heart disease with heart failure; Z90.49 Acquired absence of other specified parts of digestive tract; G47.33 Obstructive sleep apnea (adult) (pediatric); N40.0 Benign prostatic hyperplasia without lower urinary tract symptoms; Z79.51 Long term (current) use of inhaled steroids
CPT/HCPCS: 36415; 80053; 81000; 82607; 83735; 83880; 84100; 84484; 85025; 85610; 85730; 93005; 96374; 96375; 96376; 99285; C8929; G0378; J1650; J1940

== ENCOUNTER 2017-01-01 10:45 | Observation (INO) | payer MEDICARE ==
[2017-01-01] VITALS (10 sets, daily range): BP systolic 108–180; BP diastolic 64–86; PULSE 57–74; RESP 14–24; O2SAT 94–96
[~2017-01-01] VITALS: Ht 172.7 cm; Wt 102.2 kg
[~2017-01-01 10:45] MED LIST changes: +METO25TA6 PO
--- NOTE | 2017-01-01 10:56 | ED.REPORT ---
HPI-Chest Pain 40 and Over Date of Service Jan 01, 2017 ED Provider: Alberto Arguelles MD 66 y/o male with a hx of HTN and Crohn's s/p subtotal colectomy presents to the ED complaining of worsening stabbing left sided chest pain that radiates to his left shoulder and neck for the last two days. His pain is exacerbated by deep breathing and he rates it 7/10 in severity. Associated sx include shortness of breath, loss of appetite and fever of 101 (which resolved yesterday). He denies chills, change in his chronic lower extremity edema, nausea, vomiting, diarrhea , constipation and hx of DVT. The pt states he feels some relief when he takes his arthritis pain medications. The pt was admitted to the hospital for CHF over a month ago. His X-ray and stress test at the time was normal and his echocardiogram noted mild aortic stenosis. He was discharged with a prescription for metoprolol. Nursing Notes Stated Complaint: CHEST PAIN/SHORTNESS OF BREATH Chief Complaint: Chest Pain Nursing Notes Reviewed: Yes ([employer] not reconciled) Allergies: Coded Allergies: Penicillins (Verified Allergy, Unknown, UNKNOWN, 11/21/16) aspirin (Verified Allergy, Unknown, R/T CROHNS, 11/21/16) lisinopril (Verified Adverse Reaction, Severe, cough, 11/21/16) Scheduled Cholecalciferol (Vitamin D3) (Vitamin D) 1,000 Unit Capsule 1,000 UNIT PO DAILY Furosemide (Furosemide) 20 Mg Tab 20 MG PO QAM Gabapentin (Gabapentin) 300 Mg Capsule 300 MG PO BID Metoprolol Tartrate (Metoprolol Tartrate) 25 Mg Tablet 25 MG PO BID Multivit-Min/FA/Lycopen/Lutein (Centrum Silver Men Tablet) 300 Mcg-600 Mcg-300 Mcg Tablet 1 EACH PO DAILY Tamsulosin (Flomax) 0.4 Mg Capsule 0.4 MG PO DAILY Scheduled PRN Albuterol Sulfate (Ventolin HFA Inhaler) 200 Puff/18 Gm Inhaler 2 PUFF INH Q4 PRN PRN For Wheezing Hydrocodone-Acetaminophen 5-325 mg (Hydrocodone-Acetaminophen 5-325 mg) 1 Each Tablet 1 TABLET PO Q4H PRN PRN For Pain Omeprazole (Omeprazole) 20 Mg Capsule.dr 20 MG PO DAILY PRN PRN For Dyspepsia or Heartburn Tramadol (Tramadol) 50 Mg Tablet 50 MG PO HS PRN PRN For Pain Trazodone (Trazodone) 100 Mg Tablet 100 MG PO HS PRN PRN Insomnia General Time Seen by MD: 10:54 Chief Complaint Chest pain Hx Obtained From: Patient Arrived By: Walk-in Sudden in Onset?: Yes Onset Occurred: 2 days ago Symptom Duration: Since onset Location: : Chest left Quality: Stabbing Radiation: : Arm left: Neck Severity: Current: Pain level 7 out of 10 Severity: Maximum: Pain level 7 out of 10 Recent Healthcare: Recent doctor visit, Recent hospitalization Similar Sx Previous: Yes Past Medical History Past Medical History Notes: Chest admitted for chest pain with elevated troponin November 222016, status post negative stress test 12/20/2016 Past Medical History Crohn's disease s/p subtotal colectomy 2009. 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 HTN Kidney stones Admit November 2016 with clinical presentation suggestive of congestive heart failure, echocardiogram with an EF of 60-65% with mild diastolic heart failure, no wall motion abnormalities hx mild COPD History of sleep apnea BPH History of medication-induced anemia Past Surgical History S/p Subtotal colectomy 2009. Percutaneous drainage of abdomen/pelvic abscess by Interventional Radiologist in September 2013. S/P tonsillectomy. S/p Left hemiarthroplasty. Smoking History Current Every Day Smoker Social History Alcohol Use: Denies alcohol use Ambulatory Status Independent Review of Systems Reports: lack of appetite Constitutional: Reports: Fever (now resolved), Denies: Chills Respiratory: Reports: Shortness of breath Cardiovascular: Reports: Chest pain, Denies: Edema GI: Denies: Constipation, Diarrhea, Nausea, Vomiting Complete sys rev & neg: except as marked. Physical Exam Initial Vital Signs Vital Signs (First) Date Time Temp Pulse Resp B/P Pulse Ox O2 Delivery O2 Flow Rate FiO2 01/01/17 10:49 36.3 58 15 180/81 96 Room Air Initial VS: Reviewed, Vital signs normal (HTN) Head / Eyes: Atraumatic, Normocephalic Neck: Supple, Non-tender, Full range of motion Extremities: Vascular intact, Neuro intact, No tenderness Skin: Warm, Dry, No cyanosis Neurologic: Alert, Oriented, Nonfocal General/Constitutional: Awake, Alert, No acute distress, Cooperative Appearance / Presentation: Positive: Uncomfortable Respiratory / Chest: Atraumatic, Breath sounds NL, Breath sounds = bilat, No respiratory distress, No rales, No rhonchi, No wheezing Pursed lip breaathing. Mild chronic cough Cardiovascular: Heart rate NL, Regular rhythm, Heart sounds NL, No gallop, No murmurs, No rubs Heart Rate / Rhythm: Negative: Tachycardia Lower Ext Edema: Positive: Bilateral 1+ (chronic) Abdomen: Atraumatic, Soft, Non-tender, No guarding, No rebound Colostomy in place Interpretation & Diagnostics Lab Results Interpretation Result Diagram: 01/01/17 1115 01/01/17 1115 Test 01/01/17 11:15 White Blood Count 7.4th/mm3 (3.8-10.1) Red Blood Count 3.51mil/mm3 (4.40-5.80) Hemoglobin 11.9g/dL (13.8-17.2) Hematocrit 36.0% (41.0-50.0) Mean Corpuscular Volume 102.6fL (81-100) Mean Corpuscular Hemoglobin 33.9pg (27.0-35.0) Mean Corpuscular Hemoglobin Concent 33.1% (32.0-37.0) Red Cell Distribution Width 17.1% (12.3-15.4) Platelet Count 200bil/L (150-400) Neutrophils (%) (Auto) 66.4% (40-74) Lymphocytes (%) (Auto) 25.2% (14-46) Monocytes (%) (Auto) 7.3% (4-12) Eosinophils (%) (Auto) 0.9% (0-5) Basophils (%) (Auto) 0.1% (0-3) D-Dimer 4.35mg/L FEU (<0.50) Sodium Level 140mEq/L (134-144) Potassium Level 3.9mEq/L (3.5-5.2) Chloride Level 100mEq/L (97-108) Carbon Dioxide Level 23mmol/L (18-29) Blood Urea Nitrogen 13mg/dL (8-27) Creatinine 0.96mg/dL (0.76-1.27) Estimat Glomerular Filtration Rate 83mL/min (>59) Glucose Level 123mg/dL (60-99) Lactic Acid Level 1.4mmol/L (0.4-2.0) Calcium Level 9.3mg/dL (8.5-10.1) Magnesium Level 1.7mg/dL (1.6-2.6) Total Bilirubin 0.7mg/dL (0.0-1.2) Aspartate Amino Transf (AST/SGOT) 24U/L (0-50) Alanine Aminotransferase (ALT/SGPT) 15U/L (0-44) Alkaline Phosphatase 113U/L (25-160) Troponin T 0.013ug/L (0.0-0.011) Total Protein 8.3g/dL (6.4-8.4) Albumin 3.2g/dL (3.4-5.0) Lab Results Interpretation: CBC normal CMP normal Troponin indeterminate positive D-dimer elevated ECG Interpretation ECG Interpretation: EKG demonstrates a normal sinus rhythm rate of 62, there are Q waves present inferiorly suggestive of prior infarct, no interval change compared with November 22 2016 Time: 11:31 Interpreted by: ED physician X-Ray Chest Interpretation Chest Xray Interpretation: IMPRESSION: 1. Mild bibasilar atelectasis. Superimposed pneumonia is difficult to exclude. 2. Cardiomegaly without overt heart failure. Dictated by: Nixon Ware M.D. on 01/01/2017 at 10:31 Approved by: Nixon Ware M.D. on 01/01/2017 at 10:32 View: Portable, 1 view Interpretation / Wet Read by: Interpret - Radiologist CT Chest Interpretation IMPRESSION: Trace left pleural effusion and nodular consolidation within the medial left lower lobe. This could represent pneumonia, nodular scarring or rounded atelectasis. Recommend continued followup with noncontrast chest CT (in 1-2 months) to document resolution after treatment and exclude the presence of malignant/metastatic pulmonary nodule No evidence of pulmonary embolism. Cardiomegaly. Coronary artery disease. Dictated by: Mor Ortiz M.D. on 01/01/2017 at 13:36 Approved by: Mor Ortiz M.D. on 01/01/2017 at 13:43 Study type: CT pulm angiogram Interpretation / Wet Read by: Interpret - Radiologist Re-Eval/Medical Decision Med Decision/Clinical Course This is a 66-year-old male presents with a acute onset of pleuritic left chest pain and worsening the past 2 days. He does report the that he had fever 2 days ago went symptoms started, but does not think he has had one since. However he said increasing shortness of breath, the pleuritic chest pain is gotten worse in the severe than he inspiration. He denies prior history of DVT or PE, although he does go on to add that he been on warfarin empirically- allegedly not because he had DVT, but because his PCP at the time was worried he might develop them due to inactivity and chronic lower extremity edema, but this was subsequently discontinued when his PCPs changed. Of note, the patient just recently admitted for chest pain last month, had an indeterminate elevated troponin-and was thought clinically have some congestive heart failure with an echocardiogram demonstrating preserved EF, but diastolic dysfunction. He is just completed a cardiac stress test past week which was negative for evidence of coronary artery disease. Her the symptoms are new and worsening. He does have a cough, but he does not think that his change. On exam, he had a low normal O2 sat, he is a smoker. He is not visible distress , but appears quite uncomfortable and has overtly evident pleuritic component. He also has some intermittent pursed lips breathing is appears short of breath. His breath sounds have are clear with reasonable air movement, he does not have point audible bronchospasm. He has +2 edema both lower extremities, which the patient states is chronic and unchanged. I do appreciatte any murmurs. An EKG revealed no interval change. Given his d-dimer elevated, given the pleuritic discomfort, sedentary risk factors, recent hospitalization and previous risk stratification-9. We started the patient on heparin while continuing the workup. However CT scan she was negative for PE, but suggests probable pneumonia. The plan is Avelox, but after the patient was admitted last month, her talking about possible coverage for healthcare associated pneumonia, his level of discomfort, is relative hypoxia with a sat 91%, elevated troponin admission is planned. I talked to the hospitalist and they are coming to see the patient to help actually decide the antibiotic coverage, so the initial Yony prescribe ceftriaxone and Zithromax as being held until they can formally decide wish anabolic spectrum to cover him with. Source of Hx: Old records Time of Eval: 12:48 Re-Evaluation/Progress Note: Rechecked pt. Discussed lab results, imaging results, diagnosis and plan to admit. Pt understands and agrees with the plan for admission. All questions addressed. Time of Eval: 13:57 Re-Evaluation/Progress Note: Discussed CT results, diagnosis and plan to admit. Pt understands and agrees with the plan. All questions answered. Consultation #1: Referral / Consult Name: Fabien Cervantes MD Consulted With: Hospitalist Call Returned at: 13:38 Process Manufacturing Engineer: Will see patient, Agrees with eval, Agrees with plan, Accepts admit Consultation #2: Referral / Consult Name: Fabien Cervantes MD Consulted With: Hospitalist Call Returned at: 13:56 Process Manufacturing Engineer: Will see patient Note: Dr. Cervantes will see the pt to determine which antibiotics to give. Counseled Regarding: Diagnosis, Lab results, Need for admission Discharge & Departure Primary Impression: Chest pain Chest pain type: chest pain on breathing Qualified Code: R07.1 - Chest pain on breathing Additional Impressions: Elevated d-dimer Pneumonia Pneumonia type: due to unspecified organism Laterality: left Lung location : lower lobe of lung Qualified Code: J18.1 - Lobar pneumonia, unspecified organism Elevated troponin Disposition: ADMITTED TO HOSPITAL Discharge Condition All VS Reviewed: Yes Referrals: Dino David DO (PCP) Scribe Attestation Portions of this note were transcribed by Violeta Mena. I,, personally performed the history, physical exam and medical decision-making;I reviewed and confirmed the accuracy of the information in the transcribed note. Signed by Sonia العراقي. 01/01/17 13:58 copies to: Dino David Matthew F MD Jan 01, 2017 10:56 Violeta Mena Jan 01, 2017 11:16
[2017-01-01] MEDS ORDERED: HYDROmorphone 0.5 mg/0.5 mL iSecure Syringe IVPUSH PRN (11:05)
[2017-01-01] MEDS ORDERED: Ondansetron 2 mg/mL 2 mL Inj IVPUSH ONE (11:05)
[2017-01-01] MEDS ORDERED: ALBU18HF INH (11:34)
--- NOTE | 2017-01-01 11:34 | DRSVH ---
PROCEDURE: X-RAY CHEST ONE VIEW, PORTABLE ([id number]) INDICATIONS: Chest pain, shortness of breath. TECHNIQUE: One view of the chest was acquired. COMPARISON: [facility], CR, XR CHEST 2VW, 11/21/2016, 15:06. FINDINGS: Surgical changes and devices: Postoperative changes of the left shoulder are not adequately evaluated . Lungs and pleura: Linear areas of increased density are seen at the left lung base and the right lung base. No lobar consolidation, large effusion, or pneumothorax is evident. Mediastinum: Mediastinal contours appear normal. Heart size is mildly enlarged. There is aortic at herosclerosis. Bones and chest wall: No suspicious bony lesions. Degenerative changes of the shoulders and imaged spine are present. Overlying soft tissues appear unremarkable. IMPRESSION: 1. Mild bibasilar atelectasis. Superimposed pneumonia is difficult to exclude. 2. Cardiomegaly without overt heart failure. Dictated by: Nixon Ware M.D. on 01/01/2017 at 10:31 Approved by: Nixon Ware M.D. on 01/01/2017 at 10:32
[2017-01-01 11:41] LABS: BASOPHILS % (AUTO) 0.1 % (0-3); EOSINOPHILS % (AUTO) 0.9 % (0-5); MONOCYTES % (AUTO) 7.3 % (4-12); Mean Corpuscular Hemoglobin 33.9 pg (27.0-35.0); Mean Corpuscular Volume 102.6 fL (81-100); NEUTROPHILS % (AUTO) 66.4 % (40-74); Platelet Count 200 bil/L (150-400)
[2017-01-01 12:03] LABS: TROPONIN T 0.013 ug/L (0.0-0.011)
[2017-01-01 12:15] LABS: Magnesium 1.7 mg/dL (1.6-2.6)
[2017-01-01] MEDS ORDERED: Clindamycin Inj 900 MG in IV Premix 1 EACH IV ONE (12:30)
[2017-01-01] MEDS ORDERED: Heparin 25K Unit/500mL 0.45 NS 25,000 UNIT in IV Premix 1 EACH IV ONE (12:40)
[2017-01-01] MEDS ORDERED: Heparin 5,000 Unit/mL Inj IVPUSH ONE (12:40)
[2017-01-01] MEDS ORDERED: FUR20 PO (13:44)
[2017-01-01] MEDS ORDERED: TRAZ-118 PO (13:44)
[2017-01-01] MEDS ORDERED: CHOL100045 PO (13:45)
--- NOTE | 2017-01-01 13:45 | DRSVH ---
PROCEDURE: CT ANGIO CHEST PULMONARY EMBOLISM ([id number]) INDICATIONS: Pleuritic CP, Dimer+ TECHNIQUE: After the administration of intravenous contrast, 2 mm thick sections acquired from the pulmonary api william to the posterior costophrenic angles. 3-dimensional maximum intensity projection (MIP) coronal a nd sagittal reformats were then acquired through the thorax. For radiation dose reduction, the follo wing was used: automated exposure control, adjustment of mA and/or kV according to patient size. COMPARISON: [facility], CT, CT CHEST WO CON, 01/26/2015, 8:02. FINDINGS: Image quality: Excellent. Pulmonary arteries: Pulmonary arteries are normal in size, and demonstrate no intraluminal filling d efects to suggest central pulmonary embolism. Lungs and pleura: There is bibasilar scattered atelectasis and scarring. Focus of nodular consolidati on in the medial left lower lobe may be rounded atelectasis although technically indeterminate. There is trace left pleural fluid. Mediastinum: Heart size is enlarged, without pericardial effusion. Coronary artery concentrations ar e present. No mediastinal or hilar adenopathy. Thoracic aorta is normal in caliber and enhancement. Esophagus is normal in caliber, without hiatal hernia. Bones and chest wall: No suspicious bony lesions. Ribs and thoracic spine appear intact throughout. Thyroid gland negative. No axillary or supraclavicular adenopathy. Diffuse endplate spurring and sclerosis. Diffuse osteopenia. Scattered small Schmorl's nodes. Abdomen: Visualized upper abdominal solid organs appear normal in the early arterial phase of enhanc ement. IMPRESSION: Trace left pleural effusion and nodular consolidation within the medial left lower lobe. This could r epresent pneumonia, nodular scarring or rounded atelectasis. Recommend continued followup with noncon trast chest CT (in 1-2 months) to document resolution after treatment and exclude the presence of mal ignant/metastatic pulmonary nodule No evidence of pulmonary embolism. Cardiomegaly. Coronary artery disease. Dictated by: Mor Ortiz M.D. on 01/01/2017 at 13:36 Approved by: Mor Ortiz M.D. on 01/01/2017 at 13:43
[2017-01-01] MEDS ORDERED: Ondansetron 2 mg/mL 2 mL Inj IVPUSH PRN (13:50)
[2017-01-01] MEDS ORDERED: Azithromycin Inj 500 MG in Dextrose 5% w/Vial Mate 250 ML IV ONE (13:50)
[2017-01-01] MEDS ORDERED: cefTRIAXone Inj 2,000 MG in Dextrose 5% Minibag Plus 50 ML IV ONE (13:50)
[2017-01-01] MEDS ORDERED: Alum-Mag Hydrox-Simeth 30 mL Suspension PO PRN ×2 (13:50→14:25)
[2017-01-01] MEDS ORDERED: Albuterol 2.5 mg/3 mL Inhalation Solution NEB PRN (14:25)
[2017-01-01] MEDS ORDERED: Polyethylene Glycol (PEG) 17 Gm Powder PO PRN (14:25)
[2017-01-01] MEDS ORDERED: HYDROmorphone 0.5 mg/0.5 mL iSecure Syringe IVPUSH ONE (14:35)
--- NOTE | 2017-01-01 14:57 | PCM.HPMED ---
Subjective Date of Service Jan 01, 2017 Primary Provider: Admitting Physician: Fabien Cervantes MD Primary Care Physician: Dino David DO Attending Physician: Fabien Cervantes MD Admit Status: From the Emergency Department, Admit to [facility], [facility] Telemetry Chief Complaint: Chest pain and SOB History of Present Illness: Mark Gallagher is a 66 yo male with a history of COPD, diastolic CHF, HTN, and Crohn's s/p subtotal colectomy who presents to the ED complaining of worsening stabbing left-sided chest pain that radiates to his left shoulder and neck for the last 2-3 days. His pain is exacerbated by deep breathing and he rates it 7/ 10 in severity. This pain is different that his prior chest pain due to its stabbing characteristic (it is usually pressure in the past). The pain is constant, but improves slightly with his home pain medication. Patient also reports worsening of his SOB and chronic cough. He admits to increased and thicker sputum production, but it is clear. He does not use O2 at home and only uses the inhaler once in awhile. He is trying to quit smoking, but still about 1 /2 ppd. He denies any recent sick contact. Associated symptoms include shortness of breath, loss of appetite, and fever of 101-102 for 2 days. The fever resolved yesterday spontaneously. He denies chills, change in his chronic lower extremity edema, nausea, vomiting, diarrhea, constipation, or history of PE/ DVT. The patient was admitted to the hospital for CHF over a month ago. He admits sleeping on a recliner at approximately 45 degree angle and this has not changed. His X-ray and stress test at the time was normal and his echocardiogram noted mild diastolic dysfunction with EF 55-60%. He was discharged with a prescription for metoprolol. In the ED, temp 36.3, P 58, RR 15, BP 180/81, and Pulse Ox 96 at room air. CBC and CMP normal. Lactate 1.4. Ddimer of4.[address] angio chest was done, which showed no evidence of PE, but there is trace left pleural effusion and nodular consolidation within the medial left lower lobe. This could represent pneumonia, nodular scarring or rounded atelectasis. Recommend continued followup with noncontrast chest CT (in 1-2 months) to document resolution after treatment and exclude the presence of malignant/metastatic pulmonary nodule. CXR showed Mild bibasilar atelectasis. Superimposed pneumonia is difficult to exclude. EKG shows NSR of 62. Patient was admitted for concerns of HCAP due to his symptoms and recent hospitalization, but antibiotics initiation was deferred to the admitting team. Review of Systems: A comprehensive ROS was conducted with the patient and is otherwise negative unless stated otherwise in the HPI. Allergies Coded Allergies: Penicillins (Verified Allergy, Unknown, UNKNOWN, 11/21/16) aspirin (Verified Allergy, Unknown, R/T CROHNS, 11/21/16) lisinopril (Verified Adverse Reaction, Severe, cough, 11/21/16) Home Medications Scheduled Cholecalciferol (Vitamin D3) (Vitamin D) 1,000 Unit Capsule 1,000 UNIT PO DAILY Furosemide (Furosemide) 20 Mg Tab 20 MG PO QAM Gabapentin (Gabapentin) 300 Mg Capsule 300 MG PO BID Metoprolol Tartrate (Metoprolol Tartrate) 25 Mg Tablet 25 MG PO BID Multivit-Min/FA/Lycopen/Lutein (Centrum Silver Men Tablet) 300 Mcg-600 Mcg-300 Mcg Tablet 1 EACH PO DAILY Tamsulosin (Flomax) 0.4 Mg Capsule 0.4 MG PO DAILY Scheduled PRN Albuterol Sulfate (Ventolin HFA Inhaler) 200 Puff/18 Gm Inhaler 2 PUFF INH Q4 PRN PRN For Wheezing Hydrocodone-Acetaminophen 5-325 mg (Hydrocodone-Acetaminophen 5-325 mg) 1 Each Tablet 1 TABLET PO Q4H PRN PRN For Pain Omeprazole (Omeprazole) 20 Mg Capsule.dr 20 MG PO DAILY PRN PRN For Dyspepsia or Heartburn Tramadol (Tramadol) 50 Mg Tablet 50 MG PO HS PRN PRN For Pain Trazodone (Trazodone) 100 Mg Tablet 100 MG PO HS PRN PRN Insomnia PMH Recently admitted for chest pain with elevated troponin November 22-2016, status post negative stress test 12/20/2016 Crohn's disease s/p subtotal colectomy 2009. 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 HTN Kidney stones Admit November 2016 with clinical presentation suggestive of congestive heart failure, echocardiogram with an EF of 60-65% with mild diastolic heart failure, no wall motion abnormalities hx mild COPD History of sleep apnea BPH History of medication-induced anemia Surgical History S/p Subtotal colectomy 2009. Percutaneous drainage of abdomen/pelvic abscess by Interventional Radiologist in September 2013. S/P tonsillectomy. S/p Left hemiarthroplasty. Family History Father with a [place] at 77 yo. Social History Hx Alcohol Use: Yes (patient reports drinking alcohol once per month.) Hx Substance Use: No Hx Tobacco Use: Yes (3 to 5 cigarrete a day. Denied needs for nicotine patch.) Smoking Status: Current Every Day Smoker (1/2 pack per day) Living Arrangement: with Family Exam Vital Signs Vital Sign - Last Date Time Temp Pulse Resp B/P Pulse Ox O2 Delivery O2 Flow Rate FiO2 01/01/17 14:37 60 01/01/17 14:14 36.6 24 147/66 95 Nasal Cannula 2.00 Exam General: No acute distress, well-developed, well-nourished, appropriately interactive, mild conversational dyspnea. HEENT: Normocephalic, atraumatic. External ears without defect. Pupils equal, round, and reactive to light and accommodation. Anicteric sclerae, moist conjunctivae, and no lid lag. Oropharynx free of erythema and cobble stoning with moist mucosa. Neck: Supple with full range of motion. No jugular venous distension. No bruits. No lymphadenopathy or thyromegaly. Cardiovascular: Difficult exam due to body habitus. Regular rate and rhythm with no murmurs, rubs, or gallops appreciated. Reproducible chest pain on palpation to the left ribs 7-9. Pulmonary: Diffuse crackles with mild expiratory wheezes . Normal respiratory effort with no use of accessory muscles. Abdomen: Bowel tones present. Colostomy bag present. Soft, nontender, nondistended. No hepatosplenomegaly or masses appreciated. Extremities: No clubbing, cyanosis. Mild lower extremity pitting edema bilaterally up to knees. Skin: Normal temperature, turgor, and texture; no rash, ulcers, or subcutaneous nodules appreciated. Neurological: Cranial nerves grossly intact. Normal muscle strength, tone, and bulk. Reflexes, coordination, and sensory function within normal limits. No known gait impairment. Psychiatric: Normal mood and affect. Alert and oriented to person, place, and time. Lab and Diagnostics Result Diagram: 01/01/17 1115 01/01/17 1115 X-Rays, CTs and MRIs PROCEDURE: CT ANGIO CHEST PULMONARY EMBOLISM IMPRESSION: Trace left pleural effusion and nodular consolidation within the medial left lower lobe. This could represent pneumonia, nodular scarring or rounded atelectasis. Recommend continued followup with noncontrast chest CT (in 1-2 months) to document resolution after treatment and exclude the presence of malignant/metastatic pulmonary nodule No evidence of pulmonary embolism. Cardiomegaly. Coronary artery disease. Dictated by: Mor Ortiz M.D. on 01/01/2017 at 13:36 PROCEDURE: X-RAY CHEST ONE VIEW, PORTABLE IMPRESSION: 1. Mild bibasilar atelectasis. Superimposed pneumonia is difficult to exclude. 2. Cardiomegaly without overt heart failure. Dictated by: Nixon Ware M.D. on 01/01/2017 at 10:31 Cardiac Echo Impressions Interpretation Summary 11/23/16 The left ventricle is normal in size. The ejection fraction is estimated to be 55-60%. There has been no significant change since the previous study. There are no focal wall motion abnormalities. Assessment of diastolic parameters indicates a relaxation abnormality of the left ventricle, consistent with normal filling pressures. The right ventricle is mildly dilated. Right ventricular systolic function is borderline reduced. Right ventricular systolic function has decreased since previous exam. Pulmonary artery pressures cannot be estimated because of the lack of a measurable TR jet velocity. The right atrium is mildly dilated. The left atrium is mildly dilated. The peak aortic velocity is 2.68 m/sec. The peak aortic velocity on the previous exam was 2.84 m/sec. There is no hemodynamically significant valvular aortic stenosis. The ascending aorta is mildly enlarged. Assessment & Plan This is a 66 yo male with a history of COPD, diastolic CHF, HTN, and Crohn's s/ p subtotal colectomy who presents to the ED complaining of worsening stabbing left-sided chest pain that radiates to his left shoulder and neck for the last 2 -3 days. He also reports increasing SOB and sputum production and was admitted to the hospital for possible HCAP vs. COPD exacerbation. Chest pain, POA, acute. - Doubt that his chest pain is due to cardiac etiology given the fact that it is pleuritic in nature and localized to the ribs as well as reproducible on exam. - Stress test on was normal. - Trop elevated, but not significant compared to previous values. Continue to trend Trop. - Normal EKG. - Monitor Telemetry. - Pain control with Hydrocodone-APAP 5mg Q4H PRN. - Morphine IV, Nitro, and O2 available. Dyspnea, POA, acute. - Patient reports SOB only with exertion at baseline, but his SOB has been worsened in the last 3 days. - Possible etiology include pneumonia and/or COPD exacerbation. Treat the underlying cause as below. - No sign of CHF exacerbation. - Keep SpO2 around 88-92%. Possible HCAP, POA, active. - Patient presents with fever 2 days ago and worsening SOB, concerning for HCAP given his recent hospitalization in November 2016. - CXR shows mild bibasilar atelectasis, but CT angio chest shows left pleural effusion and nodular consolidation within the medial left lower lobe, which correlates with the location of his chest pain. - Normal WBC and lactic acid. However, procalcitonin of 0.14. Will continue to trend. - Will need outpatient CT follow up in 1-2 months to rule out possible malignancy given long history of smoking. - Low threshold to start antibiotics given his other co-morbilities. Antibiotic initiated with Levaquin, Cefipime, and Vanco. Will consider D/C Vanco if MRSA screen is negative. - Blood culture, sputum culture, MRSA screen, Strep Ag, and Legionella Ag ordered. - Follow clinically. COPD exacerbation, acute, active. - Patient reports worsening SOB and sputum production. - Will start Prednisone 40mg PO daily. - DuoNeb Q4H and Albuterol inhaler Q2H PRN - O2 support Diastolic CHF, chronic, not in exacerbation. - Patient reports no change in his chronic LE edema. No JVD noted on exam. - Recent Echo as above. - Patient takes Furosemide 20mg PO at home. Will increase to 40mg daily. - Continue home Metoprolol. Patient is allergic to Lisinopril. Will need to verify his reaction and consider Losartan if his BP remains elevated. Macrocytic anemia, present on admission, stable. -Several months ago patient required 5 units PRBCs due to a hemoglobin of 4.8. Oncology felt this is likely secondary to Imuran. -Patient denies alcohol use. -Vitamin B12 1 10/19/2016 634.. Folate on 10/19/2016 15.3-up. Tobacco use, present on admission: -NicoDerm patch ordered. Crohn's disease, present on admission, stable: -Outpatient follow-up. Chronic pain on chronic opioids, stable. - Resume home Vicodin and Tramadol BPH, chronic, presume stable. - Resume home Flomax. Patient is admitted under inpatient status with expected length of stay greater than 2 midnights due to severity of presenting symptoms, risk of adverse event, and complexity of treatment plan. Pain Evaluation: Adequate Pain Control GI Prophylaxis: H2 leon VTE Prophylaxis: Sub-Q Heparin (Unfractionated) Resuscitation Status: CPR: Attempt Resuscitation Time spent 45 min Attending Statement The patient was seen and examined with staff. Agree with all attached documentation. Timoteo Watson DO Jan 01, 2017 14:44 Fabien Cervantes MD Jan 02, 2017 16:42
[2017-01-01] MEDS ORDERED: Vancomycin Dose per Pharmacist XX SCH (16:00)
[2017-01-01] MEDS: Albuterol-Ipratropium 3 mL Inhalation Solution NEB SCH ×3 (16:30→23:43)
[2017-01-01] MEDS ORDERED: levoFLOXacin Inj 750 MG in IV Premix 1 EACH IV SCH (16:45)
[2017-01-01] MEDS: predniSONE 20 mg Tablet PO SCH (17:19)
[2017-01-01] MEDS: Heparin 5,000 Unit/mL Inj SUBQ SCH (17:20)
--- NOTE | 2017-01-01 18:00 | NUR ---
Admit The pt arrived to the unit at 1400 A&Ox3 with VSS. The pt has notable SOB on exertion, but remains steady on his feet and takes his time. He has been instructed to utilize the call light when getting up for safety. TELE SB-SR; RA; colostomy - self managed.
[2017-01-01 18:06] LABS: APPEARANCE,URINE CLEAR (CLEAR,HAZY); COLOR,URINE YELLOW (YELLOW); OCCULT BLOOD,URINE TRACE (NEGATIVE); UROBILINOGEN,URINE NORMAL (NORMAL)
[2017-01-01] MEDS: HYDROcodone-APAP 5-325 mg Tablet PO PRN (18:41)
[2017-01-01] MEDS: Cefepime Inj 2,000 MG in Dextrose 5% Minibag Plus 100 ML IV SCH (19:25)
--- NOTE | 2017-01-01 19:45 | NUR ---
Case Management: BRIANNA explained to patient at 1925, all questions answered. Signed original placed in chart, copy given to patient. Peggy Cortes RN
[2017-01-02] VITALS (9 sets, daily range): BP systolic 134–136; BP diastolic 56–69; PULSE 41–84; RESP 16–18; O2SAT 95–97
[2017-01-02] MEDS: Heparin 5,000 Unit/mL Inj SUBQ SCH ×2 (01:05→09:57)
[2017-01-02 03:04] LABS: BASOPHILS % (AUTO) 0 % (0-3); EOSINOPHILS % (AUTO) 0 % (0-5); Mean Corpuscular Volume 103.2 fL (81-100); NEUTROPHILS % (AUTO) 80.7 % (40-74); Platelet Count 186 bil/L (150-400)
[2017-01-02 03:37] LABS: Magnesium 1.7 mg/dL (1.6-2.6)
[2017-01-02] MEDS: HYDROcodone-APAP 5-325 mg Tablet PO PRN (03:53)
[2017-01-02] MEDS: Albuterol-Ipratropium 3 mL Inhalation Solution NEB SCH ×3 (04:25→12:41)
[2017-01-02] MEDS: Cefepime Inj 2,000 MG in Dextrose 5% Minibag Plus 100 ML IV SCH (04:41)
--- NOTE | 2017-01-02 06:18 | NUR ---
Pain/Cardiac/Resp Continues to report L chest pain, resolved per pt satisfaction with norco. Reports pain is much less severe than on admit. Sinus rhythm-sinus elan 40's, asymptomatic. Denies SOB at rest, dyspnea noted with exertion. Care continues.
[2017-01-02] MEDS: predniSONE 20 mg Tablet PO SCH (09:57)
--- NOTE | 2017-01-02 10:26 | NUR ---
Social Work: Initial Assessment/Multidisciplinary Rounds D: Per EMR review, p tis a 66 year old male admitted for PE. Pt is [facility] with Medicare; pt has no LTC or VA benefits. PCP is Dino David DO. NOK is Kam Gallagher, son, [phone]. Advanced directives not completed- info provided by [employer]. Readmit score is high, 4/8. Pt discussed in am rounds. No sw needs identified. Anticipate d/c tomorrow. Capacity for self-care discussed; no concerns from team. Pt participating in own self care during admit. [employer] met with the patient at bedside. Sw role explained, contact info and discharge planning checklist provided. Pt lives in a single story home in [place], alone. Pt occasionally uses a cane but is normally I. Pt continues to drive and is completely I with all of his ADLs and self-care at home. Pt has never had HH or Skilled rehab. Pt anticipates discharge home and will transport himself. A: Pt who is I at baseline and lives at home alone. P: Anticipate pt to discharge home via POV once medically stable; [employer] to continue to follow to assess for d/c needs. KAYLYN Menard Addendum: 01/02/17 at 1031 by MELBA CHAVIS Amended: Links added.
--- NOTE | 2017-01-02 11:29 | PCM.DIMED ---
Discharge Instructions Date of Service Jan 02, 2017 Dates of Hospitalization Jan 01, 2017 at 13:35 Discharge Diagnosis Discharge Diagnosis Chest pain, resolved. Community-acquired pneumonia, improved COPD exacerbation, improved Diastolic congestive heart failure, stable. Macrocytic anemia, stable. Tobacco dependence Crohn's disease Chronic pain on chronic opioids BPH Diet Discharge Diet: Low fat, Low Sodium Activity Discharge Activity: Limited until seen by PCP Patient Instructions Follow-up Provider: Lucie David MD Follow-up with PCP in: 1 week Fabien Cervantes MD Jan 02, 2017 11:29
[2017-01-02] MEDS ORDERED: CEFU500T61 PO (11:35)
[2017-01-02] MEDS ORDERED: AZIT500T5 PO (11:35)
--- NOTE | 2017-01-02 14:39 | NUR ---
Discharge 0930 - Discussed his care with Dr. Cervantes and the rest of the multidisciplinary care team during morning rounds. Dr. Cervantes thought he may be able to down grade and transfer to another unit today. 1330 - Discharge orders were placed and he discharged at this time. IV and telemetry discontinued intact. Discussed and gave him his discharge paperwork (instructions, hard copy of prescriptions x2, and care notes). He was taken via wheelchair by this nurse to the front door. He did not have any questions at the time of discharge and thanked staff for their care.
--- NOTE | 2017-01-02 15:15 | PCM.DC.MED ---
Discharge Summary Date of Service Jan 02, 2017 Dates of Hospitalization Date of Hospital Admission Jan 01, 2017 at 13:35 Date of Discharge: Jan 02, 2017 Providers: Admitting Physician: Fabien Hi MD Primary Care Physician: Dino David DO Attending Physician: Fabien Hi MD Diagnosis at Time of Discharge Diagnosis at Time of Discharge Chest pain, resolved. Community-acquired pneumonia, improved COPD exacerbation, improved Diastolic congestive heart failure, stable. Macrocytic anemia, stable. Tobacco dependence Crohn's disease Chronic pain on chronic opioids BPH Consultations None Procedures XRay, CTs & MRIs PROCEDURE: CT ANGIO CHEST PULMONARY EMBOLISM IMPRESSION: Trace left pleural effusion and nodular consolidation within the medial left lower lobe. This could represent pneumonia, nodular scarring or rounded atelectasis. Recommend continued followup with noncontrast chest CT (in 1-2 months) to document resolution after treatment and exclude the presence of malignant/metastatic pulmonary nodule No evidence of pulmonary embolism. Cardiomegaly. Coronary artery disease. Dictated by: Mor Ortiz M.D. on 01/01/2017 at 13:36 PROCEDURE: X-RAY CHEST ONE VIEW, PORTABLE IMPRESSION: 1. Mild bibasilar atelectasis. Superimposed pneumonia is difficult to exclude. 2. Cardiomegaly without overt heart failure. Dictated by: Nixon Ware M.D. on 01/01/2017 at 10:31 Cardiac Echo Impression Interpretation Summary 11/23/16 The left ventricle is normal in size. The ejection fraction is estimated to be 55-60%. There has been no significant change since the previous study. There are no focal wall motion abnormalities. Assessment of diastolic parameters indicates a relaxation abnormality of the left ventricle, consistent with normal filling pressures. The right ventricle is mildly dilated. Right ventricular systolic function is borderline reduced. Right ventricular systolic function has decreased since previous exam. Pulmonary artery pressures cannot be estimated because of the lack of a measurable TR jet velocity. The right atrium is mildly dilated. The left atrium is mildly dilated. The peak aortic velocity is 2.68 m/sec. The peak aortic velocity on the previous exam was 2.84 m/sec. There is no hemodynamically significant valvular aortic stenosis. The ascending aorta is mildly enlarged. Brief History Mark Gallagher is a 66 yo male with a history of COPD, diastolic CHF, HTN, and Crohn's s/p subtotal colectomy who presents to the ED complaining of worsening stabbing left-sided chest pain that radiates to his left shoulder and neck for the last 2-3 days. His pain is exacerbated by deep breathing and he rates it 7/ 10 in severity. This pain is different that his prior chest pain due to its stabbing characteristic (it is usually pressure in the past). The pain is constant, but improves slightly with his home pain medication. Patient also reports worsening of his SOB and chronic cough. He admits to increased and thicker sputum production, but it is clear. He does not use O2 at home and only uses the inhaler once in awhile. He is trying to quit smoking, but still about 1 /2 ppd. He denies any recent sick contact. Associated symptoms include shortness of breath, loss of appetite, and fever of 101-102 for 2 days. The fever resolved yesterday spontaneously. He denies chills, change in his chronic lower extremity edema, nausea, vomiting, diarrhea, constipation, or history of PE/ DVT. The patient was admitted to the hospital for CHF over a month ago. He admits sleeping on a recliner at approximately 45 degree angle and this has not changed. His X-ray and stress test at the time was normal and his echocardiogram noted mild diastolic dysfunction with EF 55-60%. He was discharged with a prescription for metoprolol. In the ED, temp 36.3, P 58, RR 15, BP 180/81, and Pulse Ox 96 at room air. CBC and CMP normal. Lactate 1.4. Ddimer of4.[address] angio chest was done, which showed no evidence of PE, but there is trace left pleural effusion and nodular consolidation within the medial left lower lobe. This could represent pneumonia, nodular scarring or rounded atelectasis. Recommend continued followup with noncontrast chest CT (in 1-2 months) to document resolution after treatment and exclude the presence of malignant/metastatic pulmonary nodule. CXR showed Mild bibasilar atelectasis. Superimposed pneumonia is difficult to exclude. EKG shows NSR of 62. Patient was admitted for concerns of HCAP due to his symptoms and recent hospitalization, but antibiotics initiation was deferred to the admitting team. Hospital Course This is a 66 yo male with a history of COPD, diastolic CHF, HTN, and Crohn's s/ p subtotal colectomy who presents to the ED complaining of worsening stabbing left-sided chest pain that radiates to his left shoulder and neck for the last 2 -3 days. He also reports increasing SOB and sputum production and was admitted to the hospital for possible HCAP vs. COPD exacerbation. Chest pain, POA, acute. - Doubt that his chest pain is due to cardiac etiology given the fact that it is pleuritic in nature and localized to the ribs as well as reproducible on exam. - Stress test on was normal. - Trop elevated, but not significant compared to previous values. Continue to trend Trop. - Normal EKG. - Monitor Telemetry. - Pain control with Hydrocodone-APAP 5mg Q4H PRN. - Morphine IV, Nitro, and O2 available. Dyspnea, POA, acute. - Patient reports SOB only with exertion at baseline, but his SOB has been worsened in the last 3 days. - Possible etiology include pneumonia and/or COPD exacerbation. Treat the underlying cause as below. - No sign of CHF exacerbation. - Keep SpO2 around 88-92%. Possible HCAP, POA, active. - Patient presents with fever 2 days ago and worsening SOB, concerning for HCAP given his recent hospitalization in November 2016. - CXR shows mild bibasilar atelectasis, but CT angio chest shows left pleural effusion and nodular consolidation within the medial left lower lobe, which correlates with the location of his chest pain. - Normal WBC and lactic acid. However, procalcitonin of 0.14. Will continue to trend. - Will need outpatient CT follow up in 1-2 months to rule out possible malignancy given long history of smoking. - Low threshold to start antibiotics given his other co-morbilities. Antibiotic initiated with Levaquin, Cefipime, and Vanco. Will consider D/C Vanco if MRSA screen is negative. - Blood culture, sputum culture, MRSA screen, Strep Ag, and Legionella Ag ordered. - Follow clinically. COPD exacerbation, acute, active. - Patient reports worsening SOB and sputum production. - Will start Prednisone 40mg PO daily. - DuoNeb Q4H and Albuterol inhaler Q2H PRN - O2 support Diastolic CHF, chronic, not in exacerbation. - Patient reports no change in his chronic LE edema. No JVD noted on exam. - Recent Echo as above. - Patient takes Furosemide 20mg PO at home. Will increase to 40mg daily. - Continue home Metoprolol. Patient is allergic to Lisinopril. Will need to verify his reaction and consider Losartan if his BP remains elevated. Macrocytic anemia, present on admission, stable. -Several months ago patient required 5 units PRBCs due to a hemoglobin of 4.8. Oncology felt this is likely secondary to Imuran. -Patient denies alcohol use. -Vitamin B12 1 10/19/2016 634.. Folate on 10/19/2016 15.3-up. Tobacco use, present on admission: -NicoDerm patch ordered. Crohn's disease, present on admission, stable: -Outpatient follow-up. Chronic pain on chronic opioids, stable. - Resume home Vicodin and Tramadol BPH, chronic, presume stable. - Resume home Flomax. Patient is admitted under inpatient status with expected length of stay greater than 2 midnights due to severity of presenting symptoms, risk of adverse event, and complexity of treatment plan. Hospital course. This patient was admitted with left-sided pleuritic pain which appeared related to a left base pneumonia. He was initially treated with broad-spectrum antibiotics. His microbiology workup was unrevealing. The patient responded with good improvement in his pain. A CT angiogram was negative for pulmonary embolism. Discharge she felt at baseline had normal oxygenation on room air and minimal or no pain. No fevers and normal white count. He was felt to be stable for conversion to oral therapy. He has no known history of MRSA. Exam Vital Signs (Last) Date Time Temp Pulse Resp B/P Pulse Ox O2 Delivery O2 Flow Rate FiO2 01/02/17 12:41 44 16 96 Room Air 01/02/17 12:00 36.6 134/56 01/01/17 14:14 2.00 Exam Patient was seen and examined and discharged Test 01/01/17 11:15 01/01/17 17:44 01/01/17 18:31 01/02/17 02:30 D-Dimer 4.35mg/L FEU (<0.50) Lactic Acid Level 1.4mmol/L (0.4-2.0) Total Bilirubin 0.7mg/dL (0.0-1.2) Aspartate Amino Transf (AST/SGOT) 24U/L (0-50) Alanine Aminotransferase (ALT/SGPT) 15U/L (0-44) Alkaline Phosphatase 113U/L (25-160) Total Protein 8.3g/dL (6.4-8.4) Albumin 3.2g/dL (3.4-5.0) Urine Color Yellow (YELLOW) Urine Appearance Clear (CLEAR,HAZY) Urine pH 5.0 (5.0-8.0) Urine Specific [place] 1.005 (1.003-1.035) Urine Protein Negativemg/dL (NEG,TRACE) Urine Glucose (UA) Negativemg/dL (NEGATIVE) Urine Ketones Negativemg/dL (NEGATIVE) Urine Occult Blood Trace (NEGATIVE) Urine Nitrite Negative (NEGATIVE) Urine Bilirubin Negative (NEGATIVE) Urine Urobilinogen Normalmg/dL (NORMAL) Urine Leukocyte Esterase Negative (NEGATIVE) Urine RBC 0-2/hpf (0-2) Urine WBC 0-5/hpf (0-5) Urine Epithelial Cells None/hpf (NONE-MOD) Urine Crystals None seen (NONE SEEN) Urine Bacteria None/hpf (NONE-FEW) Urine Hyaline Casts None/lpf (NONE) Urine Granular Casts None seen (NONE SEEN) Urine Waxy Casts None seen (NONE SEEN) Urine Red Blood Cell Casts None seen (NONE SEEN) Urine White Blood Cell Casts None seen (NONE SEEN) Urine Mucus None seen (None Seen) Urine Trichomonas None seen (NONE SEEN) Urine Yeast None (NONE SEEN) Urinalysis Comment None Urine Culture Reflexed Not indicated Urine Legionella pneumophilia Ag Negative (Negative) Activated Partial Thromboplast Time 25.0sec (22.8-33.0) White Blood Count 6.9th/mm3 (3.8-10.1) Red Blood Count 3.15mil/mm3 (4.40-5.80) Hemoglobin 10.7g/dL (13.8-17.2) Hematocrit 32.5% (41.0-50.0) Mean Corpuscular Volume 103.2fL (81-100) Mean Corpuscular Hemoglobin 34.0pg (27.0-35.0) Mean Corpuscular Hemoglobin Concent 32.9% (32.0-37.0) Red Cell Distribution Width 16.7% (12.3-15.4) Platelet Count 186bil/L (150-400) Neutrophils (%) (Auto) 80.7% (40-74) Lymphocytes (%) (Auto) 15.0% (14-46) Monocytes (%) (Auto) 4.0% (4-12) Eosinophils (%) (Auto) 0% (0-5) Basophils (%) (Auto) 0% (0-3) Sodium Level 138mEq/L (134-144) Potassium Level 4.2mEq/L (3.5-5.2) Chloride Level 99mEq/L (97-108) Carbon Dioxide Level 23mmol/L (18-29) Blood Urea Nitrogen 16mg/dL (8-27) Creatinine 0.99mg/dL (0.76-1.27) Estimat Glomerular Filtration Rate 80mL/min (>59) Glucose Level 188mg/dL (60-99) Calcium Level 9.1mg/dL (8.5-10.1) Magnesium Level 1.7mg/dL (1.6-2.6) Troponin T 0.010ug/L (0.0-0.011) Procalcitonin 0.12ng/mL (0.00-0.08) Discharge Medications Discharge Medications Azithromycin (Azithromycin) 500 Mg Tablet 500 MG PO DAILY Prescribed by: FABIEN HI MD Cefuroxime Axetil (Cefuroxime) 500 Mg Tablet 500 MG PO BID Prescribed by: FABIEN HI MD Cholecalciferol (Vitamin D3) (Vitamin D) 1,000 Unit Capsule 1,000 UNIT PO DAILY (Reported) Furosemide (Furosemide) 20 Mg Tab 20 MG PO QAM (Reported) Gabapentin (Gabapentin) 300 Mg Capsule 300 MG PO BID (Reported) Metoprolol Tartrate (Metoprolol Tartrate) 25 Mg Tablet 25 MG PO BID Prescribed by: POLINA VILLELA DO Multivit-Min/FA/Lycopen/Lutein (Centrum Silver Men Tablet) 300 Mcg-600 Mcg-300 Mcg Tablet 1 EACH PO DAILY (Reported) Tamsulosin (Flomax) 0.4 Mg Capsule 0.4 MG PO DAILY (Reported) As needed Albuterol Sulfate (Ventolin HFA Inhaler) 200 Puff/18 Gm Inhaler 2 PUFF INH Q4 PRN PRN For Wheezing (Reported) Hydrocodone-Acetaminophen 5-325 mg (Hydrocodone-Acetaminophen 5-325 mg) 1 Each Tablet 1 TABLET PO Q4H PRN PRN For Pain (Reported) Omeprazole (Omeprazole) 20 Mg Capsule.dr 20 MG PO DAILY PRN PRN For Dyspepsia or Heartburn (Reported) Tramadol (Tramadol) 50 Mg Tablet 50 MG PO HS PRN PRN For Pain (Reported) Trazodone (Trazodone) 100 Mg Tablet 100 MG PO HS PRN PRN Insomnia (Reported) Followup Plan Disposition: Home Discharge Diet: Low fat, Low Sodium Discharge Activity: Limited until seen by PCP Follow-up Provider: PARUL MOTA MD Follow-up with PCP in: 1 week Time spent 45 minutes Fabien Hi MD Jan 02, 2017 15:15
== END 2017-01-02 13:30 | disposition home or self-care (01) ==
LOC: SED 10:45 → PCC 13:35
PROVIDERS: ADMIT Hospitalist; ATTEND Hospitalist
DX: R07.89 Other chest pain (principal); J18.9 Pneumonia, unspecified organism; J44.1 Chronic obstructive pulmonary disease with (acute) exacerbation; I50.32 Chronic diastolic (congestive) heart failure; D53.9 Nutritional anemia, unspecified; K50.10 Crohn's disease of large intestine without complications; N40.0 Benign prostatic hyperplasia without lower urinary tract symptoms; G89.29 Other chronic pain; F17.210 Nicotine dependence, cigarettes, uncomplicated; Z88.0 Allergy status to penicillin; Z88.6 Allergy status to analgesic agent; Z88.8 Allergy status to other drugs, medicaments and biological substances; Z79.899 Other long term (current) drug therapy
CPT/HCPCS: 36415; 71010; 71275; 80048; 80053; 81000; 83605; 83735; 84145; 84484; 85025; 85378; 85730; 86403; 87040; 87070; 87205; 87449; 87641; 93005; 94640; 94664; 96374; 96375; 99285; G0378; J0692; J1170; J1644; J1956; J2405; J7620; Q9967